=== PATIENT | female | born 1935 | race African-American/Black ===

== ENCOUNTER 2017-04-29 14:59 | Emergency (ER) | payer MEDICARE, OTHER ==
[2017-04-29 15:53] LABS: #Basophils 0.1 thou/uL (0.0-0.2); #Lymphocytes 1.5 thou/uL (1.20-3.40); #Monocytes 0.6 thou/uL (0.11-0.59); #Neutrophils 6.3 thou/uL (1.40-6.50); %Basophils 0.8 % (0.0-1.0); %Eosinophils 0.5 % (0.0-10.0); %Lymphocytes 17.3 % (21.0-51.0); %Monocytes 6.9 % (0.0-10.0); %Neutrophils 74.4 % (42.0-75.0); Hemoglobin 12.1 g/dL (12.0-16.0); Mean Corpuscular HGB CONC 31.9 g/dL (32.0-36.0); Mean Corpuscular Hemoglobin 31.9 pg (27.0-31.0); Mean Platelet Volume 9.1 fL (7.4-10.4); Platelet Count 166 thou/uL (130-400); RBC Distribution Width 14.4 % (11.5-14.5); Red Blood Cell (RBC) Count 3.79 mill/uL (4.20-5.40); White Blood Cell (WBC) Count 8.4 thou/uL (4.8-10.8)
--- NOTE | 2017-04-29 15:57 | RAD ---
PORTABLE CHEST ONE VIEW 04/29/17 at 3:37 p.m. HISTORY: Cough. FINDINGS: Comparison made to the exam of 04/15/10. The heart size is borderline. The lungs are expanded without focal areas of consolidation, pneumothor ax or jaxson pulmonary edema or pleural effusions. IMPRESSION: No radiographic evidence of acute cardiopulmonary process. POS: [facility]
[2017-04-29 16:07] LABS: ALT (SGPT) 48 U/L (8-55); AST (SGOT) 71 U/L (5-34); Albumin 3.8 g/dL (3.4-4.8); Alkaline Phosphatase 49 U/L (40-150); Anion Gap 19 mmol/L (10-20); BUN (Urea Nitrogen) 18 mg/dL (9.8-20.1); Bilirubin, Total 0.7 mg/dL (0.2-1.2); Calc. Creatinine Clearance 0 mL/min (70-130); Calcium 9.2 mg/dL (7.8-10.44); Carbon Dioxide 23 mmol/L (23-31); Chloride 105 mmol/L (98-107); Estimated GFR-MDRD 61; Globulin 3.9 g/dL (2.4-3.5); Glucose 99 mg/dL (83-110); Magnesium 2.3 mg/dL (1.6-2.6); Protein, Total 7.7 g/dL (6.0-8.3); Sodium 143 mmol/L (136-145); Uric Acid 7.9 mg/dL (2.6-6.0)
[2017-04-29 16:25] LABS: Troponin I 0.025 ng/mL (< 0.028)
[2017-04-29] MEDS ORDERED: Aspirin 325 MG TAB ONE (16:53)
== END 2017-04-29 17:19 | disposition short-term general hospital (02) ==
LOC: MADERS 14:59
DX: E87.70 Fluid overload, unspecified (principal); E03.9 Hypothyroidism, unspecified; R09.02 Hypoxemia; I10 Essential (primary) hypertension; M10.9 Gout, unspecified; Z79.899 Other long term (current) drug therapy
CPT/HCPCS: 36415; 71010; 80053; 82553; 83735; 83880; 84443; 84484; 84550; 85025; 94760

== ENCOUNTER 2017-05-05 17:10 | Inpatient (IN) | payer MEDICARE ==
[2017-05-05] MEDS ORDERED: Calcium Carbonate 500 MG ChewTAB PO PRN (20:01)
[2017-05-05] MEDS ORDERED: Nitroglycerin 0.4 MG TAB (25 Tab Bottle) SL PRN (20:02)
[2017-05-05] MEDS: Docusate 100 MG CAP PO SCH (20:57)
[2017-05-05] MEDS: Lisinopril 5 MG TAB PO SCH (20:57)
[2017-05-06] MEDS: Levothyroxine Sodium 100 MCG TAB PO SCH (05:29)
[2017-05-06 06:02] LABS: Anion Gap 15 mmol/L (10-20); BUN (Urea Nitrogen) 17 mg/dL (9.8-20.1); Calc. Creatinine Clearance 63 mL/min (70-130); Calcium 8.8 mg/dL (7.8-10.44); Carbon Dioxide 30 mmol/L (23-31); Chloride 99 mmol/L (98-107); Estimated GFR-MDRD 64; Glucose 106 mg/dL (83-110); Potassium 3.5 mmol/L (3.5-5.1); Sodium 140 mmol/L (136-145)
[2017-05-06 06:55] LABS: Hemoglobin 9.8 g/dL (12.0-16.0); Mean Corpuscular HGB CONC 32.7 g/dL (32.0-36.0); Mean Corpuscular Hemoglobin 32.4 pg (27.0-31.0); Mean Platelet Volume 8.2 fL (7.4-10.4); Platelet Count 236 thou/uL (130-400); RBC Distribution Width 13.7 % (11.5-14.5); Red Blood Cell (RBC) Count 3.02 mill/uL (4.20-5.40); White Blood Cell (WBC) Count 7.9 thou/uL (4.8-10.8)
[2017-05-06 06:56] LABS: Anisocytosis SLIGHT = 6-15 cells (100X) (0-5/hpf); Band 3 % (5-11); Eosinophils 3 % (0-10); Lymphocytes 16 % (21-51); MDiff Complete? YES; Monocytes 10 % (0-10); Neutrophil 69 % (42-75); PLT Morphology Comment Appears Adequate
[2017-05-06] MEDS: Furosemide 40 MG TAB PO SCH (07:47)
[2017-05-06] MEDS: Lisinopril 5 MG TAB PO SCH ×2 (09:02→21:11)
[2017-05-06] MEDS: Polyethylene Glycol 3350 17 GM Packet PO SCH (09:03)
[2017-05-06] MEDS: Docusate 100 MG CAP PO SCH ×2 (09:03→21:12)
[2017-05-06] MEDS ORDERED: Ondansetron ODT 4 MG TAB PO SCH (12:30)
[2017-05-06] MEDS: methylPREDNISolone 4 mg Tablet PO SCH ×2 (17:09→21:10)
--- NOTE | 2017-05-06 20:00 | HP ---
Admitted to extended care at [facility] on the evening of 05/05/2017. CHIEF COMPLAINT: Weak. PRESENT ILLNESS: The patient is an 82-year-old Joe female who has a history of hypertension, hypot hyroidism, and arthritis. The patient lives at home with her mentally challenged son. She is damaris anderson independent of her ADLs. The patient presented to the emergency room on the day of admission complaining of increasing pain and swelling in her left knee and in her right wrist with red ness, swelling and pain. The patient said that the pain had gotten such that she could no longer get around or walk. She also was having some shortness of breath. The patient was initially evaluated in the emergency room and found to have severe arthritis of the left knee, particularly in the latera l joint compartment severe arthritic changes in the right wrist, particularly in the first LONG-TERM joint and the other carpal joints of the wrist. On exam, the wrist was red and swelled as was the knee was red and hot. Her chest x-ray showed no cardiomegaly, no pulmonary vascular congestion, but her BNP was elevated to 480. Her electrocardiogram showed bradycardia with a left bundle branch block and a first degree AV block. Patient was transferred to [facility] in [place] where she was hospi talized from 04/29/2017 until 05/05/2017. The patient was evaluated by the corporate sales representative because of h er bradycardia and was found to have a left bundle branch block and a Mobitz type 2 heart block that had resolved to a first degree AV heart block. She was asymptomatic with bradycardia. She was found to be profoundly hypothyroid with a TSH of 39 and she was started on levothyroxine 100 mcg daily. H istorically, patient has hypothyroidism and has been on levothyroxine 100 mcg, but this was not liste d in her admission meds and it may be that she has been off of this medication for a while. Dr. Daina pollard, corporate sales representative felt that some of this bradycardia may be from the hypothyroidism and since she wa s asymptomatic and Mobic had improved to a first degree AV block, so it is best just to watch. She w as felt to have some mild congestive heart failure based on some rales heard in the lung, some mild p eripheral edema and BNP elevated at 480. She was treated with diuretic and the symptoms of shortness breath resolved and she was placed on oral Lasix. The BNP dropped to 280. She also was seen in [facility] by Dr. Cirilo Erazo, orthopedic surgeon, who thought that the pain in the right wr ist and the left knee were from degenerative changes with a recent gout flare. Patient improved, but was left extremely weak and having difficulty getting around. She was transferred to [facility] on the evening of 05/05/2017. The patient was seen early on the morning of 05/06/2017 and she was able to review with me the histor y cornell she had come to the emergency room and about progressive pain and swelling in the right wrist and left knee. She said this is much better, but there is still sore. She really has not been up wa lking any her activities have still been very restricted. She said she is not having any shortness b reath, nor has she had any chest pain. PAST HISTORY: Hospitalized at [facility] from 04/29/2017 to 05/05/2017 for mild congestiv e heart failure. Echocardiogram that was done during that admission was of very poor quality seconda ry to her body habitus. Ejection fraction could not accurately be obtained, but felt to be low. The patient also had arthritis of the left knee with a gout flare and also the arthritis of the right wr ist with a gout flare that was improving, see present illness. The patient has hypertension, hypothy roidism, generalized osteoarthritis, obesity. Patient has had no surgeries. MEDICATIONS: Her home medication according to my records, but patient has not been seen since 6 was levothyroxine 100 mcg daily and amlodipine 5 mg daily. In the hospital, the patient was receiv ing the following medication, acetaminophen 650 mg every 6 hours as needed, aspirin 81 mg daily, Tums 1000 mg every 4 hours as needed for indigestion, Colace 100 mg b.i.d., furosemide 40 mg daily, hydro codone 5/325 one every 4 hours as needed, levothyroxine 100 mcg daily, lisinopril 5 mg b.i.d., MiraLa x 17 grams in 8 ounces of water daily. ALLERGIES: No known allergies. REVIEW OF SYSTEMS: Constitutional: Patient does not think she has had any recent fever. She does n ot think her weight has changed. Head and Neck: No complaints. Pulmonary: Presently no shortness of breath. Cardiovascular: No chest pain. Gastrointestinal: The patient had a little nausea this morning. She denies any recent change in her bowel habits. Genitourinary: No complaints. Musculos keletal: History of severe pain in her joints. ADLs: Prior to hospitalization, the patient was ind ependent of her ADLs. HABITS: Alcohol none. Tobacco none. SOCIAL HISTORY: Patient is . Her one son lives with her. He is mentally challenged. CODE STATUS: FULL CODE. PHYSICAL EXAMINATION: GENERAL: Shows an 82-year-old Joe female who is lying in bed. She is alert, talkative, recognizes me, but weak. She does not appear in any acute distress. VITAL SIGNS: Shows a temperature of 99.1, pulse 64, blood pressure 136/65, respirations 18, O2 sat 9 2% on room air, blood pressure 136/65. Her weight is 210. Her height is 60-1/2 inches. HEAD: Normocephalic. EYES: Pupils are equal, round, and reactive. EARS: TMs are clear. NOSE: Normal. MOUTH AND THROAT: The patient is edentulous. NECK: Carotids are equal and strong, no bruits. Thyroid not enlarged. LUNGS: Clear. HEART: Regular rate. No murmurs. ABDOMEN: Obese. Abdomen is soft. No organomegaly. EXTREMITIES: No edema. Left knee, the patient has some limitation of movement of that left knee, st ill painful with movement. The mild small effusion on the left knee that apparently has gone down, t here is no redness or increased heat. The right wrist, there is pain over the first LONG-TERM joint. NEUROLOGIC: Patient alert and oriented to person, place, and situation. She has some generalized we akness, but no focal weakness. IMPRESSION: 1. Severe generalized weakness and gait abnormality. A. Secondary to recent flare of her gout with involvement of the left knee and right wrist, leaving her nonambulatory. 2. Congestive heart failure. A. Presented on 04/29/2017 with mild congestive heart failure, manifest with BNP of 480 and basilar rales and peripheral edema. B. Clinically resolved as of 05/06/2017. 3. Gout. A. Recent uric acid level of 8 with a sed rate of 64 and CRP of 10.7. B. Recent acute flare of the left knee and right wrist. C. Improved as of 05/06/2017. 4. Hypertension. 5. Hypothyroidism. A. TSH on 04/29/2017 was elevated at 39. B. Suspect patient had not been taking her levothyroxine. This was restarted at 100 mcg daily on . 6. Bradycardia. A. Presenting with Mobitz type 2 heart block that resolved to first degree AV block. B. Asymptomatic. 7. Osteoarthritis. 8. Generalized osteoarthritis. A. Severe osteoarthritis involving the lateral compartment of the left knee. B. Severe arthritis involving the first LONG-TERM joint of the right wrist and other carpal joints of that wrist. 9. Obesity. PLAN: The patient has been admitted to [facility] for purpose of strengthening and gait traini ng. Her recent gout flare apparently is diminishing and the congestive heart failure is resolved. Haily min will continue her present medicines. We will place her on a tapering dose of steroids using a Medr ol. We will have physical therapy work with her for strengthening exercise, gait training, and also occupational therapy. If the left knee pain persists, we will consider steroid injection into the kn ee.
[2017-05-07] MEDS: Levothyroxine Sodium 100 MCG TAB PO SCH (05:16)
[2017-05-07] MEDS: Docusate 100 MG CAP PO SCH ×2 (09:00→20:37)
[2017-05-07] MEDS ORDERED: methylPREDNISolone 4 mg Tablet PO SCH ×2 (09:00→21:00)
[2017-05-07] MEDS: Furosemide 40 MG TAB PO SCH (09:00)
[2017-05-07] MEDS: methylPREDNISolone 4 mg Tablet PO SCH ×3 (09:00→18:06)
[2017-05-07] MEDS: Lisinopril 5 MG TAB PO SCH ×2 (09:01→20:38)
[2017-05-07] MEDS: Polyethylene Glycol 3350 17 GM Packet PO SCH (09:01)
--- NOTE | 2017-05-07 15:54 | PRG ---
DATE OF SERVICE: 05/07/2017 SUBJECTIVE: The patient said she feels a little better, said her left knee and right wrist are a lit tle better. She does have the Gaymar pump for moist teeth that she uses over both these areas and al so low back. At home, she has a cane and also walker that she uses as needed. The patient denies an y shortness of breath. OBJECTIVE: GENERAL: The patient is sitting up in her bed. She is alert, talkative, appears very comfortable, a nd in no distress. VITAL SIGNS: Her temperature is 97.3, pulse 85, blood pressure 142/54, respirations 18, O2 saturatio n on 2 liters is 92%. LUNGS: Clear. HEART: Regular rate. The patient has mild cough. EXTREMITIES: There is still some effusion on the left knee. There is no increased heat. She has so me improvement in her movement in the left knee. Right wrist, there is a little tender over the firs t SHELTER joint. ASSESSMENT: 1. Severe generalized weakness and gait abnormality. A. Secondary to recent flare of her gout with involvement of the left knee and right wrist, leav ing her nonambulatory. B. Improved where she is tolerating, sitting up in a chair as of 05/07/2017. 2. Congestive heart failure. A. Presented on 04/29/2017 with mild congestive heart failure, manifest with BNP of 480 and basi lar rales and peripheral edema. B. No evidence of acute congestive heart failure as of 05/07/2017. 3. Gout. A. Recent uric acid level of 8 with a sed rate of 64 and CRP of 10.7. B. Recent acute flare of the left knee and right wrist. C. Improved as of 05/07/2017. 4. Hypertension. 5. Hypothyroidism. A. TSH on 04/29/2017 was elevated at 39. B. Suspect patient had not been taking her levothyroxine. This was restarted at 100 mcg daily o n 04/29/2017. 6. Bradycardia. A. Presenting with Mobitz type 2 heart block that resolved to first degree AV block. B. Asymptomatic. 7. Osteoarthritis. 8. Generalized osteoarthritis. A. Severe osteoarthritis involving the lateral compartment of the left knee. B. Severe arthritis involving the first SHELTER joint of the right wrist and other carpal joints of that wrist. 9. Obesity. PLAN: Continue present care. Continue physical therapy.
[2017-05-08] MEDS: Levothyroxine Sodium 100 MCG TAB PO SCH (05:40)
[2017-05-08] MEDS: Ondansetron ODT 4 MG TAB PO PRN (09:23)
[2017-05-08] MEDS: Docusate 100 MG CAP PO SCH ×2 (09:24→20:46)
[2017-05-08] MEDS: Furosemide 40 MG TAB PO SCH (09:24)
[2017-05-08] MEDS: Lisinopril 5 MG TAB PO SCH ×2 (09:24→20:46)
[2017-05-08] MEDS: methylPREDNISolone 4 mg Tablet PO SCH ×4 (09:25→20:46)
[2017-05-08] MEDS: Polyethylene Glycol 3350 17 GM Packet PO SCH (09:25)
[2017-05-09] MEDS: Levothyroxine Sodium 100 MCG TAB PO SCH (05:28)
[2017-05-09] MEDS: Lisinopril 5 MG TAB PO SCH ×2 (09:02→20:23)
[2017-05-09] MEDS: Docusate 100 MG CAP PO SCH ×2 (09:03→20:52)
[2017-05-09] MEDS: methylPREDNISolone 4 mg Tablet PO SCH ×3 (09:03→17:19)
[2017-05-09] MEDS: Polyethylene Glycol 3350 17 GM Packet PO SCH (09:03)
[2017-05-09] MEDS: Furosemide 40 MG TAB PO SCH (09:03)
--- NOTE | 2017-05-09 10:02 | RAD ---
RADIOGRAPH CHEST 1 VIEW: HISTORY: An 82-year-old female with wheezing. FINDINGS: The thoracic aorta is tortuous and ectatic. There is no evidence of air space density, pneumothorax, or pulmonary edema. The lateral costophrenic angles are sharp. IMPRESSION: 1) No acute pulmonary findings. 2) Ectasia of thoracic aorta. nav [] POS: [facility]
--- NOTE | 2017-05-09 17:22 | PRG ---
DATE OF SERVICE: 05/09/2017 SUBJECTIVE: The patient said she is feeling better. Her right wrist is not hurting. Her left knee feels a lot better. She is still on the methylprednisolone and she is using the Gaymar pump for ____ _ (00:22) which she says has helped. She has been coughing a little bit, but denies any shortness of breath. OBJECTIVE: GENERAL: The patient is sitting up in bed, eating her breakfast. She appears comfortable and in no distress. VITAL SIGNS: Her temperature is 99.5, pulse 53, respirations 18, O2 sat 96% on room air, blood press ure 105/62. LUNGS: The patient has good breath sounds with expiratory wheezes and rhonchi. HEART: Regular rate. EXTREMITIES: Effusion of the left knee is resolving. The knee is warm from Gaymar pump, but it was not tender. She is moving the knee better. Right wrist with no swelling or tenderness. ASSESSMENT: 1. Severe generalized weakness and gait abnormality. A. Secondary to recent flare of her gout with involvement of the left knee and right wrist, leav ing her nonambulatory. B. Improved as of 05/09/2017. 2. Congestive heart failure. A. Presented on 04/29/2017 with mild congestive heart failure, manifest with BNP of 480 and basi lar rales and peripheral edema. B. No evidence of acute congestive heart failure as of 05/09/2017. 3. Gout. A. Recent uric acid level of 8 with a sed rate of 64 and CRP of 10.7. B. Recent acute flare of the left knee and right wrist. C. Resolving as of 05/09/2017.. 4. Hypertension. 5. Hypothyroidism. A. TSH on 04/29/2017 was elevated at 39. B. Suspect patient had not been taking her levothyroxine. This was restarted at 100 mcg daily o n 04/29/2017. 6. Bradycardia. A. Presenting with Mobitz type 2 heart block that resolved to first degree AV block. B. Asymptomatic. 7. Osteoarthritis. 8. Generalized osteoarthritis. A. Severe osteoarthritis involving the lateral compartment of the left knee. B. Severe arthritis involving the first LONGTERM joint of the right wrist and other carpal joints of that wrist. C. Symptomatically improved as of 05/09/2017. 9. Obesity. 10. Asthmatic bronchitis as of 05/09/2017. PLAN: Continue the steroids. We will obtain chest x-ray. We will place the patient on DuoNebs by n ebulizer q.i.d., Mucinex as expectorant, and Levaquin for the asthmatic bronchitis. Continue physica l therapy.
[2017-05-09] MEDS: guaiFENesin ER 600 MG TAB PO SCH (20:23)
[2017-05-10 05:55] LABS: #Eosinphils 0.2 thou/uL (0.0-0.7); #Lymphocytes 1.5 thou/uL (1.20-3.40); #Monocytes 0.6 thou/uL (0.11-0.59); %Basophils 0.7 % (0.0-1.0); %Eosinophils 2.6 % (0.0-10.0); %Lymphocytes 23.9 % (21.0-51.0); %Monocytes 8.8 % (0.0-10.0); Hemoglobin 9.7 g/dL (12.0-16.0); Mean Corpuscular Hemoglobin 33.1 pg (27.0-31.0); Mean Corpuscular Volume 100.2 fl (81.0-99.0); Platelet Count 311 thou/uL (130-400); RBC Distribution Width 13.7 % (11.5-14.5); Red Blood Cell (RBC) Count 2.92 mill/uL (4.20-5.40); White Blood Cell (WBC) Count 6.2 thou/uL (4.8-10.8)
[2017-05-10] MEDS: Levothyroxine Sodium 100 MCG TAB PO SCH (06:06)
[2017-05-10 06:34] LABS: Anion Gap 12 mmol/L (10-20); BUN (Urea Nitrogen) 19 mg/dL (9.8-20.1); Calc. Creatinine Clearance 66 mL/min (70-130); Calcium 8.4 mg/dL (7.8-10.44); Carbon Dioxide 34 mmol/L (23-31); Chloride 99 mmol/L (98-107); Estimated GFR-MDRD 71; Glucose 90 mg/dL (83-110); Potassium 4.1 mmol/L (3.5-5.1); Sodium 141 mmol/L (136-145); Uric Acid 7.7 mg/dL (2.6-6.0)
[2017-05-10] MEDS: Ondansetron ODT 4 MG TAB PO PRN (07:51)
[2017-05-10] MEDS: Furosemide 40 MG TAB PO SCH (07:57)
[2017-05-10] MEDS: methylPREDNISolone 4 mg Tablet PO SCH ×2 (07:58→17:59)
[2017-05-10] MEDS: guaiFENesin ER 600 MG TAB PO SCH ×2 (07:59→20:41)
[2017-05-10] MEDS: Docusate 100 MG CAP PO SCH ×2 (07:59→20:42)
[2017-05-10] MEDS: Polyethylene Glycol 3350 17 GM Packet PO SCH (08:00)
[2017-05-10] MEDS: Lisinopril 5 MG TAB PO SCH ×2 (08:01→20:41)
[2017-05-11] MEDS: Levothyroxine Sodium 100 MCG TAB PO SCH (06:06)
[2017-05-11] MEDS ORDERED: methylPREDNISolone 4 mg Tablet PO SCH (08:00)
[2017-05-11] MEDS: Ondansetron ODT 4 MG TAB PO PRN (08:11)
[2017-05-11] MEDS: Polyethylene Glycol 3350 17 GM Packet PO SCH (08:12)
[2017-05-11] MEDS: Docusate 100 MG CAP PO SCH ×2 (08:13→21:23)
[2017-05-11] MEDS: Furosemide 40 MG TAB PO SCH (08:13)
[2017-05-11] MEDS: Lisinopril 5 MG TAB PO SCH ×2 (08:13→21:24)
[2017-05-11] MEDS: guaiFENesin ER 600 MG TAB PO SCH ×2 (08:13→21:23)
[2017-05-11] MEDS: Allopurinol 100 MG TAB PO SCH ×2 (08:27→21:24)
--- NOTE | 2017-05-11 09:42 | PRG ---
DATE OF SERVICE: 05/11/2017 SUBJECTIVE: The patient said she is feeling better. Her breathing is doing better. Her left knee a nd right wrist are better. OBJECTIVE: The patient is lying in bed. She said she is getting up sitting in the chair some. She appears very comfortable, in no distress. Her temp last evening was 99.7, pulse 75, blood pressure 1 60/87, respirations 18, O2 saturation 98% on 2 liters. Lungs, there are good breath sounds. There a re some coarse expiratory breath sounds, but no wheeze, no rales. Heart; regular rate. Left knee no ntender. Right wrist, no swelling or tenderness. Lab shows an H&H of 9.7 and 29.2, WBC count 6200 with 64% segs, 24% lymphocytes, and a platelet count of 311,000. Sed rate less than 120. CRP 7.3, sodium 141, potassium 4.1, BUN 19, creatinine 0.91, g lucose 90, uric acid 7.7. ASSESSMENT: 1. Severe generalized weakness and gait abnormality. A. Secondary to recent flare of her gout with involvement of the left knee and right wrist, leav ing her nonambulatory. B. Improved as of 05/11/2017. 2. Congestive heart failure. A. Presented on 04/29/2017 with mild congestive heart failure, manifest with BNP of 480 and basi lar rales and peripheral edema. B. No evidence of acute congestive heart failure as of 05/11/2017. 3. Gout. A. Recent uric acid level of 8 with a sed rate of 64 and CRP of 10.7. B. Recent acute flare of the left knee and right wrist. C. Resolving as of 05/11/2017. 4. Hypertension. 5. Hypothyroidism. A. TSH on 04/29/2017 was elevated at 39. B. Suspect patient had not been taking her levothyroxine. This was restarted at 100 mcg daily o n 04/29/2017. 6. Bradycardia. A. Presenting with Mobitz type 2 heart block that resolved to first degree AV block. B. Asymptomatic. 7. Osteoarthritis. 8. Generalized osteoarthritis. A. Severe osteoarthritis involving the lateral compartment of the left knee. B. Severe arthritis involving the first SHELTER joint of the right wrist and other carpal joints of that wrist. C. Symptomatically improved as of 05/09/2017. 9. Obesity. 10. Asthmatic bronchitis. A. Improved as of 05/11/2017. PLAN: Continue present care. Continue physical therapy. The patient is completing her Medrol Dosep ak. The CRP and sed rate are still elevated. We will place the patient on allopurinol to further re duce the uric acid level and reduce her risk of recurrence of the gout attacks.
[2017-05-12] MEDS: Levothyroxine Sodium 100 MCG TAB PO SCH (06:21)
[2017-05-12] MEDS: Furosemide 40 MG TAB PO SCH (07:48)
[2017-05-12] MEDS: HYDROcodone/Acetaminophen 5/325 mg Tablet PO PRN ×2 (09:35→20:04)
[2017-05-12] MEDS: Polyethylene Glycol 3350 17 GM Packet PO SCH (09:36)
[2017-05-12] MEDS: Docusate 100 MG CAP PO SCH ×2 (09:36→20:04)
[2017-05-12] MEDS: Lisinopril 5 MG TAB PO SCH ×2 (09:37→20:03)
[2017-05-12] MEDS: guaiFENesin ER 600 MG TAB PO SCH ×2 (09:37→20:05)
[2017-05-12] MEDS: Allopurinol 100 MG TAB PO SCH ×2 (09:37→20:02)
[2017-05-13] MEDS: Levothyroxine Sodium 100 MCG TAB PO SCH (06:06)
[2017-05-13] MEDS: Furosemide 40 MG TAB PO SCH (08:06)
[2017-05-13] MEDS: Ondansetron ODT 4 MG TAB PO PRN (08:06)
[2017-05-13] MEDS: Allopurinol 100 MG TAB PO SCH ×2 (08:48→20:28)
[2017-05-13] MEDS: Lisinopril 5 MG TAB PO SCH ×2 (08:48→20:31)
[2017-05-13] MEDS: Polyethylene Glycol 3350 17 GM Packet PO SCH (08:48)
[2017-05-13] MEDS: guaiFENesin ER 600 MG TAB PO SCH ×2 (08:49→20:29)
[2017-05-13] MEDS: Docusate 100 MG CAP PO SCH ×2 (08:49→20:30)
--- NOTE | 2017-05-13 15:48 | PRG ---
DATE OF SERVICE: 05/13/2017 SUBJECTIVE: The patient says that her breathing is doing good. Her cough is better. She said she h ad a little vague pain in her tummy today. She has had no vomiting, no diarrhea. The patient is wor brooke with physical therapy, but is taking maximum assistance for transferring from bed to a chair and is not ambulating. OBJECTIVE: GENERAL: The patient is lying in bed. She is awake, alert, and appears in no distress. VITAL SIGNS: Her temperature is 98.6, pulse 62, respirations 18, blood pressure 97/61, O2 sat 92% on 2 liters. LUNGS: There are moderate breath sounds. I did not hear any wheezes or rales. HEART: Regular rate. KNEE: There is no effusion. Still has limited motion in the knee. ABDOMEN: Soft and nontender. ASSESSMENT: 1. Severe generalized weakness and gait abnormality. A. Secondary to recent flare of her gout with involvement of the left knee and right wrist, leav ing her nonambulatory. B. Mild improvement, able to sit up in the chair, but requires maximum assistance with transfer as of 05/13/2017. 2. Congestive heart failure. A. Presented on 04/29/2017 with mild congestive heart failure, manifest with BNP of 480 and basi lar rales and peripheral edema. B. No evidence of acute congestive heart failure as of 05/13/2017. 3. Gout. A. Recent uric acid level of 8 with a sed rate of 64 and CRP of 10.7. B. Recent acute flare of the left knee and right wrist. C. Resolving as of 05/11/2017. 4. Hypertension. 5. Hypothyroidism. A. TSH on 04/29/2017 was elevated at 39. B. Suspect patient had not been taking her levothyroxine. This was restarted at 100 mcg daily o n 04/29/2017. 6. Bradycardia. A. Presenting with Mobitz type 2 heart block that resolved to first degree AV block. B. Asymptomatic. 7. Osteoarthritis. 8. Generalized osteoarthritis. A. Severe osteoarthritis involving the lateral compartment of the left knee. B. Severe arthritis involving the first DETENTION joint of the right wrist and other carpal joints of that wrist. C. Right wrist is bright red, so has some pain in the left knee from advanced arthritis. 9. Obesity. 10. Asthmatic bronchitis. A. Improved as of 05/13/2017. PLAN: Continue present care. We will repeat chest x-ray in the morning. The patient still on the L evaquin for the bronchitis. The patient completed the Medrol Dosepak. We will place the patient on prednisone 20 mg daily for 5 days, then 15 mg daily for 5 days, then 10 mg daily for 5 days, then 5 m g daily. We will do follow up on inflammatory markers. Knee does not improve, we will consider ster oid injection.
[2017-05-13] MEDS: HYDROcodone/Acetaminophen 5/325 mg Tablet PO PRN (20:34)
[2017-05-14 05:24] LABS: #Eosinphils 0.1 thou/uL (0.0-0.7); #Lymphocytes 1.7 thou/uL (1.20-3.40); #Monocytes 0.6 thou/uL (0.11-0.59); #Neutrophils 7.3 thou/uL (1.40-6.50); %Basophils 0.3 % (0.0-1.0); %Eosinophils 0.8 % (0.0-10.0); %Lymphocytes 17.3 % (21.0-51.0); %Monocytes 6.4 % (0.0-10.0); %Neutrophils 75.1 % (42.0-75.0); Hemoglobin 8.7 g/dL (12.0-16.0); Mean Corpuscular HGB CONC 31.9 g/dL (32.0-36.0); Mean Corpuscular Hemoglobin 32.2 pg (27.0-31.0); Mean Platelet Volume 6.4 fL (7.4-10.4); Platelet Count 304 thou/uL (130-400); RBC Distribution Width 13.7 % (11.5-14.5); White Blood Cell (WBC) Count 9.7 thou/uL (4.8-10.8)
[2017-05-14 05:38] LABS: Anion Gap 17 mmol/L (10-20); BUN (Urea Nitrogen) 21 mg/dL (9.8-20.1); Calc. Creatinine Clearance 52 mL/min (70-130); Calcium 8.9 mg/dL (7.8-10.44); Carbon Dioxide 32 mmol/L (23-31); Chloride 93 mmol/L (98-107); Estimated GFR-MDRD 56; Glucose 102 mg/dL (83-110); Potassium 4.2 mmol/L (3.5-5.1); Sodium 138 mmol/L (136-145)
[2017-05-14] MEDS: Levothyroxine Sodium 100 MCG TAB PO SCH (05:53)
[2017-05-14] MEDS: Lisinopril 5 MG TAB PO SCH ×2 (08:01→20:29)
[2017-05-14] MEDS: predniSONE 20 MG TAB PO SCH (08:01)
[2017-05-14] MEDS: guaiFENesin ER 600 MG TAB PO SCH ×2 (08:02→20:29)
[2017-05-14] MEDS: Furosemide 40 MG TAB PO SCH (08:02)
[2017-05-14] MEDS: Allopurinol 100 MG TAB PO SCH ×2 (08:03→20:30)
[2017-05-14] MEDS: Docusate 100 MG CAP PO SCH ×2 (08:03→20:29)
[2017-05-14] MEDS: Polyethylene Glycol 3350 17 GM Packet PO SCH (08:03)
--- NOTE | 2017-05-14 11:54 | PRG ---
DATE OF SERVICE: 05/14/2017 SUBJECTIVE: The patient says her knee and wrist are feeling better. She said she is eating pretty g ood. She said she has some real vague, little discomfort in her stomach, but she has had no nausea o r vomiting. Said her bowels are moving okay. Patient is not wanting to get up much. Encouraged her to try to spend more time out of bed and work with physical therapy. OBJECTIVE: GENERAL: The patient is lying in bed. She appears comfortable in no distress. VITAL SIGNS: Her temperature is 99, blood pressure 167/70, pulse 60, respirations 16 and O2 sat 93% on room air. LUNGS: There are good breath sounds. No rales. There is occasional little mild expiratory wheeze. HEART: Regular rate. ABDOMEN: Soft with good bowel sounds. Abdomen is nontender. EXTREMITIES: Right knee, there is no effusion. The knee was not tender to palpation. There is limi tyrese movement in that knee. LABORATORY DATA: Her lab shows a hemoglobin of 8.7 and hematocrit of 27.2, WBC count 9.7 with 75% se gs, 17% lymphocytes and a platelet count of 304,000. Sodium 138, potassium 4.2, BUN 21, creatinine 1 .13 and GFR 56. Uric acid level down to 5. ASSESSMENT: 1. Severe generalized weakness and gait abnormality. A. Secondary to recent flare of her gout with involvement of the left knee and right wrist, leav ing her nonambulatory. B. Essentially bed confined and requires maximum assistance up in the chair as of 05/14/2017. 2. Congestive heart failure. A. Presented on 04/29/2017 with mild congestive heart failure, manifest with BNP of 480 and basi lar rales and peripheral edema. B. No evidence of acute congestive heart failure as of 05/14/2017. 3. Gout. A. Recent uric acid level of 8 with a sed rate of 64 and CRP of 10.7. B. Recent acute flare of the left knee and right wrist. C. Acute flare has resolved as of 05/14. 4. Hypertension. 5. Hypothyroidism. A. TSH on 04/29/2017 was elevated at 39. B. Suspect patient had not been taking her levothyroxine. This was restarted at 100 mcg daily o n 04/29/2017. 6. Bradycardia. A. Presenting with Mobitz type 2 heart block that resolved to first degree AV block. B. EKG on 05/13/2016 shows a sinus bradycardia with a rate of 53 with first-degree AV block and left bundle branch block. C. Asymptomatic as of 05/14/2017. 7. Osteoarthritis. 8. Generalized osteoarthritis. A. Severe osteoarthritis involving the lateral compartment of the left knee. B. Severe arthritis involving the first RETIREMENT joint of the right wrist and other carpal joints of that wrist. C. Right wrist is bright red, so has some pain in the left knee from advanced arthritis. 9. Obesity. 10. Asthmatic bronchitis. A. Improved as of 05/14/2017. 11. Anemia of chronic illness. PLAN: We will continue present care. I have started her on steroids to see if this will help with s ome of the generalized osteoarthritis symptoms and recent gout flare and encourage her to get up more with physical therapy work with her.
[2017-05-15] MEDS: Levothyroxine Sodium 100 MCG TAB PO SCH (06:01)
[2017-05-15] MEDS: Furosemide 40 MG TAB PO SCH (07:57)
[2017-05-15] MEDS: Allopurinol 100 MG TAB PO SCH ×2 (09:23→21:11)
[2017-05-15] MEDS: guaiFENesin ER 600 MG TAB PO SCH ×2 (09:24→21:11)
[2017-05-15] MEDS: Docusate 100 MG CAP PO SCH ×2 (09:24→21:11)
[2017-05-15] MEDS: Lisinopril 5 MG TAB PO SCH ×2 (09:25→21:12)
[2017-05-15] MEDS: Polyethylene Glycol 3350 17 GM Packet PO SCH (09:26)
[2017-05-15] MEDS: predniSONE 20 MG TAB PO SCH (09:26)
[2017-05-16] MEDS: Levothyroxine Sodium 100 MCG TAB PO SCH (05:23)
[2017-05-16] MEDS: Allopurinol 100 MG TAB PO SCH ×2 (08:41→20:52)
[2017-05-16] MEDS: Docusate 100 MG CAP PO SCH ×2 (08:41→20:52)
[2017-05-16] MEDS: Furosemide 40 MG TAB PO SCH (08:41)
[2017-05-16] MEDS: guaiFENesin ER 600 MG TAB PO SCH ×2 (08:42→20:52)
[2017-05-16] MEDS: predniSONE 20 MG TAB PO SCH (08:42)
[2017-05-16] MEDS: Polyethylene Glycol 3350 17 GM Packet PO SCH (08:42)
[2017-05-16] MEDS: Lisinopril 5 MG TAB PO SCH ×2 (08:42→20:53)
[2017-05-16] MEDS: Acetaminophen 325 MG TAB PO PRN (08:43)
[2017-05-17 05:24] LABS: Anion Gap 15 mmol/L (10-20); BUN (Urea Nitrogen) 30 mg/dL (9.8-20.1); Calc. Creatinine Clearance 58 mL/min (70-130); Calcium 8.9 mg/dL (7.8-10.44); Carbon Dioxide 32 mmol/L (23-31); Chloride 97 mmol/L (98-107); Estimated GFR-MDRD 63; Glucose 98 mg/dL (83-110); Potassium 4.1 mmol/L (3.5-5.1); Sodium 140 mmol/L (136-145)
[2017-05-17 05:31] LABS: Anisocytosis SLIGHT = 6-15 cells (100X) (0-5/hpf); Band 2 % (5-11); Eosinophils 2 % (0-10); Hemoglobin 10.2 g/dL (12.0-16.0); Hypochromia MODERATE=16-30 cells (100X) (0-5/hpf); Lymphocytes 19 % (21-51); MDiff Complete? YES; Mean Corpuscular HGB CONC 32.5 g/dL (32.0-36.0); Mean Corpuscular Hemoglobin 32.5 pg (27.0-31.0); Mean Corpuscular Volume 100.1 fl (81.0-99.0); Mean Platelet Volume 5.7 fL (7.4-10.4); Monocytes 7 % (0-10); Neutrophil 69 % (42-75); PLT Morphology Comment Appears Adequate; Platelet Count 319 thou/uL (130-400); Poikilocytosis SLIGHT = 6-15 cells (100X) (0-5/hpf); RBC Distribution Width 13.5 % (11.5-14.5); RBC Morphology Abnormal; Reactive Lymphocytes 1 % (0-10); Red Blood Cell (RBC) Count 3.13 mill/uL (4.20-5.40); Schistocytes SLIGHT = 2-5 cells (100X) (0-1/hpf); White Blood Cell (WBC) Count 12.1 thou/uL (4.8-10.8)
[2017-05-17] MEDS: Levothyroxine Sodium 100 MCG TAB PO SCH (06:12)
[2017-05-17] MEDS: Furosemide 40 MG TAB PO SCH (08:40)
[2017-05-17] MEDS: guaiFENesin ER 600 MG TAB PO SCH ×2 (08:41→21:20)
[2017-05-17] MEDS: Allopurinol 100 MG TAB PO SCH ×2 (08:41→21:21)
[2017-05-17] MEDS: Docusate 100 MG CAP PO SCH ×2 (08:41→21:21)
[2017-05-17] MEDS: Lisinopril 5 MG TAB PO SCH ×2 (08:42→21:21)
[2017-05-17] MEDS: Polyethylene Glycol 3350 17 GM Packet PO SCH (08:42)
[2017-05-17] MEDS: predniSONE 20 MG TAB PO SCH (08:42)
--- NOTE | 2017-05-17 11:59 | PRG ---
DATE OF SERVICE: 05/17/2017 SUBJECTIVE: The patient said she is feeling better. Her knee is feeling better. The patient said t hat prior to her hospitalization, she was able to walk short distances. The patient said that her kn ee started to bother after she fell and she had an attack of the gout. OBJECTIVE: The patient looks better. She is a lot more interactive. She moves in bed much easier. Yesterday, she was sitting up on the edge of the bed and looked very comfortable. Her vital signs s how a temperature 98.3, pulse 65, respirations 20, O2 sat 100% on room air, blood pressure 171/67. H er lungs are clear. Heart, regular rate. Left knee, there is no effusion. The patient with very li mited motion in that left knee. There is no peripheral edema. LABORATORY DATA: Her H and H is 10.2 and 31.4, white cell count 12,100 with 69% segs, 19% lymphocyte s, and platelet count of 319. Sodium 140, potassium 4.1, BUN 30, creatinine 1, glucose 98. C-reacti ve protein pending and sed rate is greater than 120. ASSESSMENT: 1. Severe generalized weakness and gait abnormality. A. Secondary to recent flare of her gout with involvement of the left knee and right wrist, leav ing her nonambulatory. B. Essentially bed confined and requires maximum assistance up in the chair as of 05/14/2017. C. A little improved as of 05/17/2017. 2. Congestive heart failure. A. Presented on 04/29/2017 with mild congestive heart failure, manifest with BNP of 480 and basi lar rales and peripheral edema. B. No evidence of acute congestive heart failure as of 05/17/2017. 3. Gout. A. Recent uric acid level of 8 with a sed rate of 64 and CRP of 10.7. B. Recent acute flare of the left knee and right wrist. C. Acute flare has resolved as of 05/14. 4. Hypertension. 5. Hypothyroidism. A. TSH on 04/29/2017 was elevated at 39. B. Suspect patient had not been taking her levothyroxine. This was restarted at 100 mcg daily o n 04/29/2017. 6. Bradycardia. A. Presenting with Mobitz type 2 heart block that resolved to first degree AV block. B. EKG on 05/13/2016 shows a sinus bradycardia with a rate of 53 with first-degree AV block and left bundle branch block. C. Asymptomatic as of 05/14/2017. 7. Osteoarthritis. 8. Generalized osteoarthritis. A. Severe osteoarthritis involving the lateral compartment of the left knee. B. Severe arthritis involving the first SHELTER joint of the right wrist and other carpal joints of that wrist. C. Right wrist pain has resolved, left knee pain has improved. D. Marked elevation of sed rate and CRP, possibly from inflammatory arthritis, possibly just rep resenting the recent flare of her gout that has settled. 9. Obesity. 10. Asthmatic bronchitis. A. Improved as of 05/17/2017. 11. Anemia of chronic illness. A. Improved with hemoglobin up to 10.2 as of 05/17/2017. PLAN: The patient looks better. We will continue the steroids. We will recheck in the morning. We will check a rheumatoid factor. Continue physical therapy.
[2017-05-18] MEDS: Levothyroxine Sodium 100 MCG TAB PO SCH (05:11)
[2017-05-18] MEDS: Furosemide 40 MG TAB PO SCH (08:39)
[2017-05-18] MEDS: Lisinopril 5 MG TAB PO SCH ×2 (08:40→20:16)
[2017-05-18] MEDS: Docusate 100 MG CAP PO SCH ×2 (08:40→20:15)
[2017-05-18] MEDS: guaiFENesin ER 600 MG TAB PO SCH ×2 (08:41→20:15)
[2017-05-18] MEDS: Polyethylene Glycol 3350 17 GM Packet PO SCH (08:41)
[2017-05-18] MEDS: Allopurinol 100 MG TAB PO SCH ×2 (08:41→20:16)
[2017-05-18] MEDS ORDERED: predniSONE 5 MG TAB PO SCH (09:00)
[2017-05-18] MEDS: HYDROcodone/Acetaminophen 5/325 mg Tablet PO PRN (17:31)
[2017-05-19] MEDS: Levothyroxine Sodium 100 MCG TAB PO SCH (06:02)
[2017-05-19] MEDS: Furosemide 40 MG TAB PO SCH (08:32)
[2017-05-19] MEDS: predniSONE 20 MG TAB PO SCH (08:32)
[2017-05-19] MEDS: Allopurinol 100 MG TAB PO SCH ×2 (08:33→20:57)
[2017-05-19] MEDS: Docusate 100 MG CAP PO SCH ×2 (08:33→20:57)
[2017-05-19] MEDS: Lisinopril 5 MG TAB PO SCH ×2 (08:34→20:58)
[2017-05-19] MEDS: guaiFENesin ER 600 MG TAB PO SCH ×2 (08:34→20:57)
[2017-05-19] MEDS: Polyethylene Glycol 3350 17 GM Packet PO SCH (08:35)
[2017-05-19] MEDS: Acetaminophen 325 MG TAB PO PRN (11:12)
--- NOTE | 2017-05-19 11:46 | PRG ---
DATE OF SERVICE: 05/19/2017 SUBJECTIVE: The patient said she did get up some yesterday. The patient said she is doing okay, but noticed that her left knee is red and swelled again and hurts. OBJECTIVE: The patient is lying in bed. She is alert and appears comfortable. Her vital signs show temperature 98.4, pulse 56, respirations 18, O2 saturation 97%, blood pressure 158/70. Lungs have e xpiratory rhonchi and wheeze, no rales. Heart; regular rate. Left knee; the left knee is a little m ore swelled than it has been. There is a little effusion present and increased heat and it is a luis eduardo le tender to palpation. ASSESSMENT: 1. Severe generalized weakness and gait abnormality. A. Secondary to recent flare of her gout with involvement of the left knee and right wrist, leav ing her nonambulatory. B. Essentially bed confined and requires maximum assistance up in the chair as of 05/14/2017. C. Stable as of 05/19/2017. 2. Congestive heart failure. A. Presented on 04/29/2017 with mild congestive heart failure, manifest with BNP of 480 and basi lar rales and peripheral edema. B. No evidence of acute congestive heart failure as of 05/19/2017. 3. Gout. A. Recent uric acid level of 8 with a sed rate of 64 and CRP of 10.7. B. Recent acute flare of the left knee and right wrist. C. Acute flare has resolved as of 05/14. D. Acute swelling and increased heat of the left knee, suspect secondary to an acute gouty flare as of 05/19/2017. 4. Hypertension. 5. Hypothyroidism. A. TSH on 04/29/2017 was elevated at 39. B. Suspect patient had not been taking her levothyroxine. This was restarted at 100 mcg daily o n 04/29/2017. 6. Bradycardia. A. Presenting with Mobitz type 2 heart block that resolved to first degree AV block. B. EKG on 05/13/2016 shows a sinus bradycardia with a rate of 53 with first-degree AV block and left bundle branch block. C. Asymptomatic as of 05/14/2017. 7. Osteoarthritis. 8. Generalized osteoarthritis. A. Severe osteoarthritis involving the lateral compartment of the left knee. B. Severe arthritis involving the first CUSTODIAL joint of the right wrist and other carpal joints of that wrist. C. Right wrist pain has resolved, left knee pain has improved. D. Marked elevation of sed rate and CRP, possibly from inflammatory arthritis, possibly just rep resenting the recent flare of her gout that has settled. 9. Obesity. 10. Asthmatic bronchitis. A. Persists as of 05/19/2017. 11. Anemia of chronic illness. A. Improved with hemoglobin up to 10.2 as of 05/17/2017. PLAN: The patient's lab from 2 days previously showed a C-reactive protein of 11.4. Uric acid was 5 .0. The patient's prednisone had been decreased maybe prompting the flare. Will apply heat to the kn ee. We will increase her prednisone to 40 mg a day and this may help with the asthma and the acute i nflammation of the left knee. We will consider aspiration of the knee and possible steroid injection of the left knee.
[2017-05-20] MEDS: Levothyroxine Sodium 100 MCG TAB PO SCH (06:19)
[2017-05-20] MEDS: predniSONE 20 MG TAB PO SCH (08:11)
[2017-05-20] MEDS: Furosemide 40 MG TAB PO SCH (08:11)
[2017-05-20] MEDS: Allopurinol 100 MG TAB PO SCH ×2 (08:12→20:53)
[2017-05-20] MEDS: guaiFENesin ER 600 MG TAB PO SCH ×2 (08:12→20:55)
[2017-05-20] MEDS: Docusate 100 MG CAP PO SCH ×2 (08:12→20:56)
[2017-05-20] MEDS: Polyethylene Glycol 3350 17 GM Packet PO SCH (08:13)
[2017-05-20] MEDS: Lisinopril 5 MG TAB PO SCH ×2 (08:13→20:54)
--- NOTE | 2017-05-20 09:27 | PRG ---
DATE OF SERVICE: 05/20/2017 SUBJECTIVE: The patient said she feels better today. I visited with family who said that for quite some time at home the patient has essentially been in the bed. She gets up some just to a bedside co mmode. She has really not done any walking. She had a fall in the home prior to her admission when she was trying to get up. I have not seen the patient prior to this admission for 6-8 months and at that time she was getting around with just a cane, but this was very limited. Apparently, over the e nsuing months, she essentially spends most her time in bed and has very limited walking capability. In the hospital at present, she does get up in the chair some, but its maximum assistance to get her up. OBJECTIVE: The patient looks much better this morning. She looks comfortable. Her temp is 97.9, bl ood pressure 138/68, respirations 18, O2 sat 94% on 2 liters. Lungs are clear. Heart, regular rate. Left knee, the increased heat is resolved. The effusion is resolving. The leg was nontender to pa lpation. Rheumatoid factor was negative. ASSESSMENT: 1. Severe generalized weakness and gait abnormality. A. Secondary to recent flare of her gout with involvement of the left knee and right wrist, leav ing her nonambulatory. B. Essentially bed confined and requires maximum assistance up in the chair as of 05/20/2017. C. Stable as 05/20/2017. D. Conversation with family, prior to admission the patient essentially spent most of her time i n bed with very limited periods up in a chair and limited ambulatory capability. 2. Congestive heart failure. A. Presented on 04/29/2017 with mild congestive heart failure, manifest with BNP of 480 and basi lar rales and peripheral edema. B. No evidence of acute congestive heart failure as of 05/20/2017. 3. Gout. A. Recent uric acid level of 8 with a sed rate of 64 and CRP of 10.7. B. Recent acute flare of the left knee and right wrist. C. Acute flare has resolved as of 05/14. D. Acute swelling and increased heat of the left knee, suspect secondary to an acute gouty flare as of 05/19/2017. 1. Improved as of 05/20/2017. 4. Hypertension. 5. Hypothyroidism. A. TSH on 04/29/2017 was elevated at 39. B. Suspect patient had not been taking her levothyroxine. This was restarted at 100 mcg daily o n 04/29/2017. 6. Bradycardia. A. Presenting with Mobitz type 2 heart block that resolved to first degree AV block. B. EKG on 05/13/2016 shows a sinus bradycardia with a rate of 53 with first-degree AV block and left bundle branch block. C. Asymptomatic as of 05/14/2017. 7. Osteoarthritis. 8. Generalized osteoarthritis. A. Severe osteoarthritis involving the lateral compartment of the left knee. B. Severe arthritis involving the first HALF-WAY joint of the right wrist and other carpal joints of that wrist. C. Right wrist pain has resolved, left knee pain has improved. D. Marked elevation of sed rate and CRP, possibly from inflammatory arthritis, possibly just rep resenting the recent flare of her gout that has settled. 9. Obesity. 10. Asthmatic bronchitis. A. Persists as of 05/19/2017. 11. Anemia of chronic illness. A. Improved with hemoglobin up to 10.2 as of 05/17/2017. PLAN: The patient looks better today. Her knee looks better. Her lungs sound better. I visited wi th the family who explained to me her very limited capability even prior to the admission. The patie nt lives at home with a son who is mentally challenged. The patient has made very limited gains whil e in the hospital. We will continue efforts at physical therapy, but I am not optimistic that she wi ll make much progress. She has a severe arthritic left knee, but is not a candidate for any surgical repair. We will continue efforts, start physical therapy. We will get Water Engineer to visit wit h patient and the family. The patient may require half-way placement upon discharge.
[2017-05-21 05:56] LABS: Hemoglobin 8.7 g/dL (12.0-16.0); Mean Corpuscular HGB CONC 32.4 g/dL (32.0-36.0); Mean Corpuscular Hemoglobin 32.7 pg (27.0-31.0); Mean Corpuscular Volume 100.7 fl (81.0-99.0); Mean Platelet Volume 6.3 fL (7.4-10.4); Platelet Count 308 thou/uL (130-400); RBC Distribution Width 13.4 % (11.5-14.5); Red Blood Cell (RBC) Count 2.66 mill/uL (4.20-5.40); White Blood Cell (WBC) Count 13.5 thou/uL (4.8-10.8)
[2017-05-21 05:57] LABS: Anisocytosis SLIGHT = 6-15 cells (100X) (0-5/hpf); Band 7 % (5-11); Eosinophils 2 % (0-10); Hypochromia MODERATE=16-30 cells (100X) (0-5/hpf); Lymphocytes 13 % (21-51); MDiff Complete? YES; Macrocytosis SLIGHT = 6-15 cells (100X) (0-5/hpf); Monocytes 7 % (0-10); Myelocyte 1 % (0-0); Neutrophil 71 % (42-75); Poikilocytosis SLIGHT = 6-15 cells (100X) (0-5/hpf); Promyelocytes 1 % (0-0); Target Cells MODERATE= 6-15 cells (100X) (0-1/hpf)
[2017-05-21] MEDS: Levothyroxine Sodium 100 MCG TAB PO SCH (06:10)
[2017-05-21 06:32] LABS: ALT (SGPT) 38 U/L (8-55); AST (SGOT) 34 U/L (5-34); Albumin 2.9 g/dL (3.4-4.8); Alkaline Phosphatase 129 U/L (40-150); Anion Gap 15 mmol/L (10-20); BUN (Urea Nitrogen) 31 mg/dL (9.8-20.1); Bilirubin, Total 0.3 mg/dL (0.2-1.2); Calc. Creatinine Clearance 71 mL/min (70-130); Carbon Dioxide 28 mmol/L (23-31); Chloride 106 mmol/L (98-107); Estimated GFR-MDRD 79; Globulin 4.1 g/dL (2.4-3.5); Glucose 125 mg/dL (83-110); Potassium 3.9 mmol/L (3.5-5.1); Sodium 145 mmol/L (136-145)
[2017-05-21] MEDS: Allopurinol 100 MG TAB PO SCH ×2 (08:23→20:21)
[2017-05-21] MEDS: Furosemide 40 MG TAB PO SCH (08:23)
[2017-05-21] MEDS: predniSONE 20 MG TAB PO SCH (08:23)
[2017-05-21] MEDS: Lisinopril 5 MG TAB PO SCH ×2 (08:24→20:20)
[2017-05-21] MEDS: Polyethylene Glycol 3350 17 GM Packet PO SCH (08:24)
[2017-05-21] MEDS: guaiFENesin ER 600 MG TAB PO SCH ×2 (08:24→20:20)
[2017-05-21] MEDS: Docusate 100 MG CAP PO SCH ×2 (08:24→20:20)
--- NOTE | 2017-05-21 11:21 | PRG ---
DATE OF SERVICE: 05/21/2017 SUBJECTIVE: The patient states she feels little better today. She is up in a Kori chair, sitting up . It took maximum assistant research scientist to get her up into the chair. Late afternoon yesterday, patient was a l ittle bit more confused. She has had episodes of this confusion, has also tested by the family that this has been going on for some time and probably represents underlying dementia. OBJECTIVE: GENERAL: The patient is alert. She looks comfortable up in a chair. She recognizes me and correctl y able to call my name. She did know it is Wednesday, but was unsure of the year or the season. VITAL SIGNS: Shows temperature of 99.1, her pulse is 59, blood pressure 94/66, last evening it was 1 80/71, respirations 16, O2 sat 100% on 2 liters. LUNGS: Clear. HEART: Regular rate. EXTREMITIES: Left knee, there is just a small effusion. There is no redness, no increased heat. LABORATORY DATA: Shows hemoglobin and hematocrit of 8.7 and 26.8. White cell count 13,500 with 71% segs, 7% bands, and 13% lymphocytes. Her sodium 145, potassium 3.9, BUN 31, creatinine 0.83, GFR 79, and glucose 125. TSH down to 8.5 from a high of 39. ASSESSMENT: 1. Severe generalized weakness and gait abnormality. A. Secondary to recent flare of her gout with involvement of the left knee and right wrist, leav ing her nonambulatory. B. Essentially bed confined and requires maximum assistance up in the chair as of 05/20/2017. C. Stable as 05/20/2017. D. Sitting up in a chair, but requiring maximum assistance for transfer from bed as of 8. 2. Congestive heart failure. A. Presented on 04/29/2017 with mild congestive heart failure, manifest with BNP of 480 and basi lar rales and peripheral edema. B. No evidence of acute congestive heart failure as of 05/21/2017. 3. Gout. A. Recent uric acid level of 8 with a sed rate of 64 and CRP of 10.7. B. Recent acute flare of the left knee and right wrist. C. Acute flare has resolved as of 05/14. D. Acute swelling and increased heat of the left knee, suspect secondary to an acute gouty flare as of 05/19/2017. 1. Improved as of 05/21/2017. 4. Hypertension. 5. Hypothyroidism. A. TSH on 04/29/2017 was elevated at 39. B. Suspect patient had not been taking her levothyroxine. This was restarted at 100 mcg daily o n 04/29/2017. C. TSH down to 8 as of 05/21/2017. 6. Bradycardia. A. Presenting with Mobitz type 2 heart block that resolved to first degree AV block. B. EKG on 05/13/2016 shows a sinus bradycardia with a rate of 53 with first-degree AV block and left bundle branch block. C. Asymptomatic as of 05/14/2017. 7. Osteoarthritis. 8. Generalized osteoarthritis. A. Severe osteoarthritis involving the lateral compartment of the left knee. B. Severe arthritis involving the first NURSING HOME joint of the right wrist and other carpal joints of that wrist. C. Right wrist pain has resolved, left knee pain has improved. D. Marked elevation of sed rate and CRP, possibly from inflammatory arthritis, possibly just rep resenting the recent flare of her gout that has settled. E. Improved as of 05/21/2017. 9. Obesity. 10. Asthmatic bronchitis. A. Improved as of 05/21/2017. 11. Anemia of chronic illness. A. Improved with hemoglobin up to 10.2 as of 05/17/2017. 12. Dementia. PLAN: Continue physical therapy and continue present care. Long range not optimistic that patient w ill be able to make much progress with physical therapy, but she is up today in a chair and we will t ry to give her the opportunity for increase in her functional capabilities. If she is not able to im prove, suspect that she will require halfway placement.
[2017-05-22] MEDS: Levothyroxine Sodium 100 MCG TAB PO SCH (05:41)
[2017-05-22] MEDS: Polyethylene Glycol 3350 17 GM Packet PO SCH (08:00)
[2017-05-22] MEDS: Docusate 100 MG CAP PO SCH ×2 (08:39→22:11)
[2017-05-22] MEDS: guaiFENesin ER 600 MG TAB PO SCH ×2 (08:39→22:11)
[2017-05-22] MEDS: predniSONE 20 MG TAB PO SCH (08:39)
[2017-05-22] MEDS: Lisinopril 5 MG TAB PO SCH ×2 (08:39→22:12)
[2017-05-22] MEDS: Allopurinol 100 MG TAB PO SCH ×2 (08:39→22:12)
[2017-05-22] MEDS: Furosemide 40 MG TAB PO SCH (08:39)
[2017-05-23] MEDS: Levothyroxine Sodium 100 MCG TAB PO SCH (05:08)
[2017-05-23] MEDS: predniSONE 20 MG TAB PO SCH (08:44)
[2017-05-23] MEDS: Furosemide 40 MG TAB PO SCH (08:45)
[2017-05-23] MEDS: Allopurinol 100 MG TAB PO SCH ×2 (08:45→20:08)
[2017-05-23] MEDS: Lisinopril 5 MG TAB PO SCH ×2 (08:45→20:07)
[2017-05-23] MEDS: Polyethylene Glycol 3350 17 GM Packet PO SCH (08:47)
[2017-05-23] MEDS: Docusate 100 MG CAP PO SCH ×2 (08:48→20:08)
[2017-05-23] MEDS: guaiFENesin ER 600 MG TAB PO SCH ×2 (08:48→20:08)
[2017-05-23] MEDS ORDERED: predniSONE 10 MG TAB PO SCH (09:00)
[2017-05-23] MEDS ORDERED: Lisinopril 10 MG TAB ONE (19:58)
[2017-05-24] MEDS: Levothyroxine Sodium 100 MCG TAB PO SCH (06:01)
[2017-05-24 06:35] LABS: Anion Gap 13 mmol/L (10-20); BUN (Urea Nitrogen) 27 mg/dL (9.8-20.1); Calc. Creatinine Clearance 83 mL/min (70-130); Calcium 8.7 mg/dL (7.8-10.44); Carbon Dioxide 27 mmol/L (23-31); Chloride 103 mmol/L (98-107); Estimated GFR-MDRD Greater than 90; Glucose 87 mg/dL (83-110); Potassium 4.1 mmol/L (3.5-5.1); Sodium 139 mmol/L (136-145)
[2017-05-24 06:38] LABS: #Basophils 0.1 thou/uL (0.0-0.2); #Eosinphils 0.1 thou/uL (0.0-0.7); #Lymphocytes 2.9 thou/uL (1.20-3.40); #Neutrophils 9.5 thou/uL (1.40-6.50); %Basophils 0.6 % (0.0-1.0); %Eosinophils 0.6 % (0.0-10.0); %Lymphocytes 21.5 % (21.0-51.0); %Monocytes 7.5 % (0.0-10.0); %Neutrophils 69.8 % (42.0-75.0); Hemoglobin 8.9 g/dL (12.0-16.0); Mean Corpuscular HGB CONC 32.1 g/dL (32.0-36.0); Mean Corpuscular Hemoglobin 32.1 pg (27.0-31.0); Mean Corpuscular Volume 100.2 fl (81.0-99.0); Mean Platelet Volume 6.5 fL (7.4-10.4); Platelet Count 296 thou/uL (130-400); RBC Distribution Width 13.6 % (11.5-14.5); Red Blood Cell (RBC) Count 2.76 mill/uL (4.20-5.40); White Blood Cell (WBC) Count 13.7 thou/uL (4.8-10.8)
[2017-05-24] MEDS: Furosemide 40 MG TAB PO SCH (08:32)
[2017-05-24] MEDS: Allopurinol 100 MG TAB PO SCH ×2 (08:33→21:29)
[2017-05-24] MEDS: predniSONE 20 MG TAB PO SCH (08:33)
[2017-05-24] MEDS: guaiFENesin ER 600 MG TAB PO SCH ×2 (08:34→21:28)
[2017-05-24] MEDS: Docusate 100 MG CAP PO SCH ×2 (08:34→21:28)
[2017-05-24] MEDS: Polyethylene Glycol 3350 17 GM Packet PO SCH (08:37)
[2017-05-25] MEDS: Levothyroxine Sodium 100 MCG TAB PO SCH (05:48)
[2017-05-25] MEDS: guaiFENesin ER 600 MG TAB PO SCH ×2 (08:42→20:52)
[2017-05-25] MEDS: Polyethylene Glycol 3350 17 GM Packet PO SCH (08:42)
[2017-05-25] MEDS: predniSONE 20 MG TAB PO SCH (08:43)
[2017-05-25] MEDS: Docusate 100 MG CAP PO SCH ×2 (08:43→20:51)
[2017-05-25] MEDS: Furosemide 40 MG TAB PO SCH (08:43)
[2017-05-25] MEDS: Allopurinol 100 MG TAB PO SCH ×2 (08:43→20:51)
--- NOTE | 2017-05-25 12:35 | PRG ---
DATE OF SERVICE: 05/25/2017 SUBJECTIVE: The patient said she is feeling better today. The patient said her knee feels better. Nurses and dietitian said that the patient eats very, very slow. She is not drinking a lot of fluids and certainly takes in far less than her restricted amount. OBJECTIVE: The patient is sitting up in bed, is more talkative, looks comfortable in no distress. H er temperature is 98, pulse 62, respirations 20, O2 sat 95% on 2-1/2 liters, blood pressure was 95/59 , yesterday it was a little low and her lisinopril was discontinued. Her lungs were clear. Heart, r egular rate. Left knee is warm, but she said she has had the moist heat on this from the Gaymar pump . The knee certainly was not tender on palpation. Her lab that was done yesterday showed an H&H of 8.9 and 27.7, white blood cell count 13,700 with 70% segs, 21% lymphocytes, and a platelet count of 2 69,000. Her sodium was 139, potassium 4.1, BUN 27, creatinine 0.71, GFR greater than 90, glucose 87. C-reactive protein has dropped to 4.85. Her sed rate is still greater than 120. ASSESSMENT: 1. Severe generalized weakness and gait abnormality. A. Secondary to recent flare of her gout with involvement of the left knee and right wrist, leav ing her nonambulatory. B. Essentially bed confined and requires maximum assistance up in the chair as of 05/20/2017. C. Stable as 05/20/2017. D. Sitting up in a chair, but requiring maximum assistance for transfer from bed as of 8. 2. Congestive heart failure. A. Presented on 04/29/2017 with mild congestive heart failure, manifest with BNP of 480 and basi lar rales and peripheral edema. B. No evidence of acute congestive heart failure as of 05/25/2017. 3. Gout. A. Recent uric acid level of 8 with a sed rate of 64 and CRP of 10.7. B. Recent acute flare of the left knee and right wrist. C. Acute flare has resolved as of 05/14. D. Acute swelling and increased heat of the left knee, suspect secondary to an acute gouty flare as of 05/19/2017. 1. Improved as of 05/25/2017. 4. Hypertension. 5. Hypothyroidism. A. TSH on 04/29/2017 was elevated at 39. B. Suspect patient had not been taking her levothyroxine. This was restarted at 100 mcg daily o n 04/29/2017. C. TSH down to 8 as of 05/21/2017. 6. Bradycardia. A. Presenting with Mobitz type 2 heart block that resolved to first degree AV block. B. EKG on 05/13/2016 shows a sinus bradycardia with a rate of 53 with first-degree AV block and left bundle branch block. C. Asymptomatic as of 05/25/2017. 7. Osteoarthritis. 8. Generalized osteoarthritis. A. Severe osteoarthritis involving the lateral compartment of the left knee. B. Severe arthritis involving the first JAIL joint of the right wrist and other carpal joints of that wrist. C. Right wrist pain has resolved, left knee pain has improved. D. Marked elevation of sed rate and CRP, possibly from inflammatory arthritis, possibly just rep resenting the recent flare of her gout that has settled. E. Improved with CRP down to 4.8. Sed rate though is still greater than 120. 9. Obesity. 10. Asthmatic bronchitis. A. Improved as of 05/21/2017. 11. Anemia of chronic illness. A. Improved with hemoglobin up to 10.2 as of 05/17/2017. 12. Dementia. PLAN: Will remove the fluid restriction. Continue physical therapy. Will try a reduction in the pr ednisone to 20 mg.
[2017-05-25] MEDS: Acetaminophen 325 MG TAB PO PRN (20:50)
[2017-05-26] MEDS: Levothyroxine Sodium 100 MCG TAB PO SCH (05:37)
[2017-05-26] MEDS: predniSONE 20 MG TAB PO SCH (08:30)
[2017-05-26] MEDS: guaiFENesin ER 600 MG TAB PO SCH ×2 (08:30→20:15)
[2017-05-26] MEDS: Docusate 100 MG CAP PO SCH ×2 (08:30→20:15)
[2017-05-26] MEDS: Furosemide 40 MG TAB PO SCH (08:30)
[2017-05-26] MEDS: Polyethylene Glycol 3350 17 GM Packet PO SCH (08:30)
[2017-05-26] MEDS: Allopurinol 100 MG TAB PO SCH ×2 (08:30→20:15)
[2017-05-27] MEDS: Levothyroxine Sodium 100 MCG TAB PO SCH (05:59)
[2017-05-27] MEDS: predniSONE 20 MG TAB PO SCH (08:19)
[2017-05-27] MEDS: Furosemide 40 MG TAB PO SCH (08:19)
[2017-05-27] MEDS: Docusate 100 MG CAP PO SCH ×2 (08:20→19:44)
[2017-05-27] MEDS: Allopurinol 100 MG TAB PO SCH ×2 (08:20→19:45)
[2017-05-27] MEDS: guaiFENesin ER 600 MG TAB PO SCH ×2 (08:20→19:44)
[2017-05-27] MEDS: Polyethylene Glycol 3350 17 GM Packet PO SCH (08:21)
[2017-05-27] MEDS: Ondansetron ODT 4 MG TAB PO PRN (16:08)
[2017-05-28] MEDS: Levothyroxine Sodium 100 MCG TAB PO SCH (05:15)
[2017-05-28] MEDS: guaiFENesin ER 600 MG TAB PO SCH ×2 (08:32→20:11)
[2017-05-28] MEDS: Docusate 100 MG CAP PO SCH ×2 (08:32→20:11)
[2017-05-28] MEDS: Allopurinol 100 MG TAB PO SCH ×2 (08:32→20:11)
[2017-05-28] MEDS: Furosemide 40 MG TAB PO SCH (08:32)
[2017-05-28] MEDS: Polyethylene Glycol 3350 17 GM Packet PO SCH (08:32)
[2017-05-28] MEDS: predniSONE 20 MG TAB PO SCH (08:32)
[2017-05-28] MEDS ORDERED: predniSONE 5 MG TAB PO SCH (09:00)
[2017-05-28 11:37] LABS: #Basophils 0.1 thou/uL (0.0-0.2); #Eosinphils 0.1 thou/uL (0.0-0.7); #Lymphocytes 1.2 thou/uL (1.20-3.40); #Monocytes 0.9 thou/uL (0.11-0.59); #Neutrophils 9.4 thou/uL (1.40-6.50); %Basophils 0.8 % (0.0-1.0); %Eosinophils 0.9 % (0.0-10.0); %Lymphocytes 10.2 % (21.0-51.0); %Monocytes 7.8 % (0.0-10.0); %Neutrophils 80.4 % (42.0-75.0); Mean Corpuscular HGB CONC 32.8 g/dL (32.0-36.0); Mean Corpuscular Hemoglobin 32.8 pg (27.0-31.0); Mean Platelet Volume 6.4 fL (7.4-10.4); Platelet Count 263 thou/uL (130-400); RBC Distribution Width 14.2 % (11.5-14.5); Red Blood Cell (RBC) Count 2.75 mill/uL (4.20-5.40); White Blood Cell (WBC) Count 11.7 thou/uL (4.8-10.8)
--- NOTE | 2017-05-28 12:38 | PRG ---
DATE OF SERVICE: 05/28/2017 SUBJECTIVE: The patient is feeling better. She is up today in the Kori chair, still taking maximum assist for transfer. The patient said overall she is feeling better, her breathing better. OBJECTIVE: VITAL SIGNS: Her vital signs shows temperature of 100.1. Her pulse is 70, respirations 20, O2 sat 9 2% on 2 liters, and blood pressure 134/63. LUNGS: Clear. HEART: Regular rate. EXTREMITIES: Her left knee has small effusion and a little tender to palpation, there is no redness. ASSESSMENT: 1. Severe generalized weakness and gait abnormality. A. Secondary to recent flare of her gout with involvement of the left knee and right wrist, leav ing her nonambulatory. B. Essentially bed confined and requires maximum assistance up in the chair as of 05/20/2017. C. Stable as 05/20/2017. D. Sitting up in a chair, but requiring maximum assistance for transfer from bed as of 8. 2. Congestive heart failure. A. Presented on 04/29/2017 with mild congestive heart failure, manifest with BNP of 480 and basi lar rales and peripheral edema. B. No evidence of acute congestive heart failure as of 05/28/2017. 3. Gout. A. Recent uric acid level of 8 with a sed rate of 64 and CRP of 10.7. B. Recent acute flare of the left knee and right wrist. C. Acute flare has resolved as of 05/14. D. Acute swelling and increased heat of the left knee, suspect secondary to an acute gouty flare as of 05/19/2017. 1. Improved as of 05/28/2017. 4. Hypertension. 5. Hypothyroidism. A. TSH on 04/29/2017 was elevated at 39. B. Suspect patient had not been taking her levothyroxine. This was restarted at 100 mcg daily o n 04/29/2017. C. TSH down to 8 as of 05/21/2017. 6. Bradycardia. A. Presenting with Mobitz type 2 heart block that resolved to first degree AV block. B. EKG on 05/13/2016 shows a sinus bradycardia with a rate of 53 with first-degree AV block and left bundle branch block. C. Asymptomatic as of 05/25/2017. 7. Osteoarthritis. 8. Generalized osteoarthritis. A. Severe osteoarthritis involving the lateral compartment of the left knee. B. Severe arthritis involving the first ALF joint of the right wrist and other carpal joints of that wrist. C. Right wrist pain has resolved, left knee pain has improved. D. Marked elevation of sed rate and CRP, possibly from inflammatory arthritis, possibly just rep resenting the recent flare of her gout that has settled. E. Improved with CRP down to 4.8. Sed rate though is still greater than 120. 9. Obesity. 10. Asthmatic bronchitis. A. Resolved as of 05/28/2017. 11. Anemia of chronic illness. A. Improved with hemoglobin up to 10.2 as of 05/17/2017. 12. Dementia. 13. Low grade fever as of 05/28/2017. PLAN: We will continue present care. We will check CBC and UA due to low grade fever. Continue obs erve long range. The family is looking for probable move to the [facility] upon her di dulce.
[2017-05-28 15:22] LABS: Bilirubin Negative (Negative); Blood, Urine Negative (Negative); Clarity Clear (Clear); Glucose, Urine (Dipstick) Negative (Negative); Leukocyte Negative (Negative); Nitrite Negative (Negative); Protein, Urine (Dipstick) Negative (Neg-Trace); Urobilinogen 0.2 mg/dL (0.2-1.0)
[2017-05-28 15:30] LABS: Bacteria/HPF Rare-Few HPF (None Seen); Crystals/HPF 1+ AMORPH URATES HPF (Negative); RBC/HPF None Seen HPF (0-3); Squamous Epithelial 0-3 HPF (0-3); WBC/HPF None Seen HPF (0-3)
[2017-05-28] MEDS: Ondansetron ODT 4 MG TAB PO PRN (18:10)
[2017-05-28] MEDS: Acetaminophen 325 MG TAB PO PRN (20:11)
[2017-05-29] MEDS: Levothyroxine Sodium 100 MCG TAB PO SCH (05:14)
[2017-05-29] MEDS: Furosemide 40 MG TAB PO SCH (09:29)
[2017-05-29] MEDS: Polyethylene Glycol 3350 17 GM Packet PO SCH (09:29)
[2017-05-29] MEDS: predniSONE 20 MG TAB PO SCH (09:29)
[2017-05-29] MEDS: Docusate 100 MG CAP PO SCH ×2 (09:29→20:27)
[2017-05-29] MEDS: guaiFENesin ER 600 MG TAB PO SCH ×2 (09:29→20:27)
[2017-05-29] MEDS: Allopurinol 100 MG TAB PO SCH ×2 (09:29→20:27)
[2017-05-30] MEDS: Levothyroxine Sodium 100 MCG TAB PO SCH (06:04)
[2017-05-30] MEDS: predniSONE 20 MG TAB PO SCH (07:58)
[2017-05-30] MEDS: Furosemide 40 MG TAB PO SCH (07:58)
[2017-05-30] MEDS: Allopurinol 100 MG TAB PO SCH ×2 (08:31→20:18)
[2017-05-30] MEDS: Docusate 100 MG CAP PO SCH ×2 (08:32→20:18)
[2017-05-30] MEDS: Polyethylene Glycol 3350 17 GM Packet PO SCH (08:32)
[2017-05-30] MEDS: guaiFENesin ER 600 MG TAB PO SCH ×2 (08:32→20:18)
[2017-05-31] MEDS: Levothyroxine Sodium 100 MCG TAB PO SCH (06:16)
[2017-05-31] MEDS: Furosemide 40 MG TAB PO SCH (07:28)
[2017-05-31] MEDS: Polyethylene Glycol 3350 17 GM Packet PO SCH (08:26)
[2017-05-31] MEDS: guaiFENesin ER 600 MG TAB PO SCH ×2 (08:27→19:59)
[2017-05-31] MEDS: Allopurinol 100 MG TAB PO SCH ×2 (08:27→19:59)
[2017-05-31] MEDS: Docusate 100 MG CAP PO SCH ×2 (08:28→19:59)
[2017-05-31] MEDS: predniSONE 20 MG TAB PO SCH (08:28)
--- NOTE | 2017-05-31 12:41 | PRG ---
DATE OF SERVICE: 05/31/2017 SUBJECTIVE: The patient said she is doing okay this morning. OBJECTIVE: The patient is lying in bed. She is alert, appears comfortable, in no distress. She has heat on her left knee. Her vital signs show a temperature 98.9, pulse 70, respirations 18, O2 sat 1 00% on 2 liters, blood pressure last evening 189/78, earlier 163/69. Her lungs are clear. Heart, re gular rate. Left knee, small effusion present. Leg mildly tender to palpation. Patient has very mi nimal movement in that left knee. ASSESSMENT: 1. Severe generalized weakness and gait abnormality. A. Secondary to recent flare of her gout with involvement of the left knee and right wrist, leav ing her nonambulatory. B. Essentially bed confined and requires maximum assistance up in the chair as of 05/20/2017. C. Sitting up in a chair some, but required maximum assistance with transfer from bed to a chair as of 05/31/2017. 2. Congestive heart failure. A. Presented on 04/29/2017 with mild congestive heart failure, manifest with BNP of 480 and basi lar rales and peripheral edema. B. No evidence of acute congestive heart failure as of 05/31/2017. 3. Gout. A. Recent uric acid level of 8 with a sed rate of 64 and CRP of 10.7. B. Recent acute flare of the left knee and right wrist. C. Acute flare has resolved as of 05/14. D. Acute swelling and increased heat of the left knee, suspect secondary to an acute gouty flare as of 05/19/2017. 1. The acute gouty flare has resolved, but patient still has some chronic degenerative porter e as of 05/31/2017. 4. Hypertension. 5. Hypothyroidism. A. TSH on 04/29/2017 was elevated at 39. B. Suspect patient had not been taking her levothyroxine. This was restarted at 100 mcg daily o n 04/29/2017. C. TSH down to 8 as of 05/21/2017. 6. Bradycardia. A. Presenting with Mobitz type 2 heart block that resolved to first degree AV block. B. EKG on 05/13/2016 shows a sinus bradycardia with a rate of 53 with first-degree AV block and left bundle branch block. C. Asymptomatic as of 05/31/2017. 7. Osteoarthritis. 8. Generalized osteoarthritis. A. Severe osteoarthritis involving the lateral compartment of the left knee. B. Severe arthritis involving the first USP joint of the right wrist and other carpal joints of that wrist. C. Right wrist pain has resolved, left knee pain has improved. D. Marked elevation of sed rate and CRP, possibly from inflammatory arthritis, possibly just rep resenting the recent flare of her gout that has settled. E. Improved with CRP down to 4.8. Sed rate though is still greater than 120. 9. Obesity. 10. Asthmatic bronchitis. A. Resolved as of 05/28/2017. 11. Anemia of chronic illness. A. Improved with hemoglobin up to 10.2 as of 05/17/2017. 12. Dementia. PLAN: Continue present care. Continue physical therapy efforts. Family looking towards patient ent ering the retirement.
[2017-06-01] MEDS: Levothyroxine Sodium 100 MCG TAB PO SCH (05:51)
[2017-06-01] MEDS: Furosemide 40 MG TAB PO SCH (08:16)
[2017-06-01] MEDS: Polyethylene Glycol 3350 17 GM Packet PO SCH (08:16)
[2017-06-01] MEDS: predniSONE 20 MG TAB PO SCH (08:16)
[2017-06-01] MEDS: Docusate 100 MG CAP PO SCH ×2 (08:16→20:14)
[2017-06-01] MEDS: guaiFENesin ER 600 MG TAB PO SCH ×2 (08:17→20:14)
[2017-06-01] MEDS: Allopurinol 100 MG TAB PO SCH ×2 (08:17→20:14)
[2017-06-01] MEDS: HYDROcodone/Acetaminophen 5/325 mg Tablet PO PRN (08:18)
[2017-06-02] MEDS: Levothyroxine Sodium 100 MCG TAB PO SCH (06:05)
[2017-06-02] MEDS ORDERED: predniSONE 20 MG TAB PO SCH (08:18)
[2017-06-02] MEDS: Docusate 100 MG CAP PO SCH ×2 (08:26→20:28)
[2017-06-02] MEDS: Allopurinol 100 MG TAB PO SCH ×2 (08:26→20:31)
[2017-06-02] MEDS: Furosemide 40 MG TAB PO SCH (08:26)
[2017-06-02] MEDS: Polyethylene Glycol 3350 17 GM Packet PO SCH (08:26)
[2017-06-02] MEDS: guaiFENesin ER 600 MG TAB PO SCH ×2 (08:26→20:28)
[2017-06-02] MEDS: predniSONE 20 MG TAB PO SCH (10:17)
[2017-06-02] MEDS: HYDROcodone/Acetaminophen 5/325 mg Tablet PO PRN ×2 (10:34→19:42)
--- NOTE | 2017-06-02 11:15 | PRG ---
DATE OF SERVICE: 06/02/2017 SUBJECTIVE: The patient said she is feeling better today. The patient is being lifted with a Rebecca lift into a wheelchair and she has enjoyed being up in a wheelchair. OBJECTIVE: The patient is sitting up in a wheelchair, alert, appears comfortable, in no distress. H er temperature is 97, pulse 60, respirations 20, O2 sat 93% on 2 liters, blood pressure 93/57, earlie r 141/60. Lungs are clear. Heart, regular rate. Extremities, no edema. The patient has small effu kamaljit on both knees. ASSESSMENT: 1. Severe generalized weakness and gait abnormality. A. Secondary to recent flare of her gout with involvement of the left knee and right wrist, leav ing her nonambulatory. B. Essentially bed confined and requires maximum assistance up in the chair as of 05/20/2017. C. Tolerating sitting up in a wheelchair, but requires lifting to the chair with a Rebecca lift as of 06/02/2017. 2. Congestive heart failure. A. Presented on 04/29/2017 with mild congestive heart failure, manifest with BNP of 480 and basi lar rales and peripheral edema. B. No evidence of acute congestive heart failure as of 06/02/2017. 3. Gout. A. Recent uric acid level of 8 with a sed rate of 64 and CRP of 10.7. B. Recent acute flare of the left knee and right wrist. C. Acute flare has resolved as of 05/14. D. Acute swelling and increased heat of the left knee, suspect secondary to an acute gouty flare as of 05/19/2017. 1. The acute gouty flare has resolved, but patient still has some chronic degenerative porter e as of 06/02/2017. 4. Hypertension. 5. Hypothyroidism. A. TSH on 04/29/2017 was elevated at 39. B. Suspect patient had not been taking her levothyroxine. This was restarted at 100 mcg daily o n 04/29/2017. C. TSH down to 8 as of 05/21/2017. 6. Bradycardia. A. Presenting with Mobitz type 2 heart block that resolved to first degree AV block. B. EKG on 05/13/2016 shows a sinus bradycardia with a rate of 53 with first-degree AV block and left bundle branch block. C. Asymptomatic as of 06/02/2017. 7. Osteoarthritis. 8. Generalized osteoarthritis. A. Severe osteoarthritis involving the lateral compartment of the left knee. B. Severe arthritis involving the first PRISON joint of the right wrist and other carpal joints of that wrist. C. Right wrist pain has resolved, left knee pain has improved. D. Marked elevation of sed rate and CRP, possibly from inflammatory arthritis, possibly just rep resenting the recent flare of her gout that has settled. E. Improved with CRP down to 4.8. Sed rate though is still greater than 120. 9. Obesity. 10. Asthmatic bronchitis. A. Resolved as of 05/28/2017. 11. Anemia of chronic illness. A. Improved with hemoglobin up to 10.2 as of 05/17/2017. 12. Dementia. PLAN: Continue present care. Will reduce the prednisone to 10 mg a day and family making arrangemen ts for patient to enter [facility] tomorrow.
[2017-06-03] MEDS: Levothyroxine Sodium 100 MCG TAB PO SCH (06:06)
[2017-06-03] MEDS: Docusate 100 MG CAP PO SCH ×2 (08:55→20:19)
[2017-06-03] MEDS: Allopurinol 100 MG TAB PO SCH ×2 (08:55→20:19)
[2017-06-03] MEDS: guaiFENesin ER 600 MG TAB PO SCH ×2 (08:55→20:19)
[2017-06-03] MEDS: predniSONE 20 MG TAB PO SCH (08:55)
[2017-06-03] MEDS: HYDROcodone/Acetaminophen 5/325 mg Tablet PO PRN (08:56)
[2017-06-03] MEDS: Polyethylene Glycol 3350 17 GM Packet PO SCH (08:56)
--- NOTE | 2017-06-03 09:01 | PRG ---
DATE OF SERVICE: 06/03/2017 SUBJECTIVE: The patient said she is feeling fine. OBJECTIVE: The patient is lying in bed, alert, talkative, appears comfortable, and in no distress. Her skin is dry. Her vital signs this morning showed blood pressure of 65/52, through in the evening she also had a low pressure, but later recheck was 118/58. Periodically, she will run low levels. Her blood pressure medicines have been held. Her repeat pressure was 68/52. Her lungs are clear. H eart, regular rate. Extremities have no edema. ASSESSMENT: Hypotension, with her in bed, asymptomatic. The source of this is not known, possibly s econdary to effect of her diuretics with over diuresis, also possibly related to adrenal insufficienc y since she has been on steroids and these have been decreased. PLAN: The patient was scheduled to go to group home today. This will be delayed. We will start t he patient on IV fluids and give her 250 mL bolus and then run at 100 an hour. We will check cortiso l level, CBC, and basic metabolic panel this morning and we will also give patient bolus of steroids in the event that this is adrenal insufficiency.
[2017-06-03 09:37] LABS: Anisocytosis SLIGHT = 6-15 cells (100X) (0-5/hpf); Band 1 % (5-11); Eosinophils 1 % (0-10); Hemoglobin 10.2 g/dL (12.0-16.0); Lymphocytes 11 % (21-51); MDiff Complete? YES; Manual Diff?? YES; Mean Corpuscular HGB CONC 32.4 g/dL (32.0-36.0); Mean Corpuscular Hemoglobin 32.7 pg (27.0-31.0); Mean Corpuscular Volume 100.9 fl (81.0-99.0); Mean Platelet Volume 8.7 fL (7.4-10.4); Monocytes 7 % (0-10); Neutrophil 80 % (42-75); Platelet Count 130 thou/uL (130-400); RBC Distribution Width 14.3 % (11.5-14.5); Red Blood Cell (RBC) Count 3.12 mill/uL (4.20-5.40); White Blood Cell (WBC) Count 10.7 thou/uL (4.8-10.8)
[2017-06-03 09:38] LABS: PLT Morphology Comment Appears Adequate
[2017-06-03 09:42] LABS: CKMB 1.2 ng/mL (0-6.6); Troponin I 0.035 ng/mL (< 0.028)
[2017-06-03 09:44] LABS: ALT (SGPT) 22 U/L (8-55); AST (SGOT) 21 U/L (5-34); Albumin 3.1 g/dL (3.4-4.8); Alkaline Phosphatase 79 U/L (40-150); Anion Gap 17 mmol/L (10-20); BUN (Urea Nitrogen) 24 mg/dL (9.8-20.1); Bilirubin, Total 0.6 mg/dL (0.2-1.2); Calc. Creatinine Clearance 82 mL/min (70-130); Calcium 9.3 mg/dL (7.8-10.44); Carbon Dioxide 25 mmol/L (23-31); Chloride 100 mmol/L (98-107); Estimated GFR-MDRD Greater than 90; Globulin 4.2 g/dL (2.4-3.5); Glucose 104 mg/dL (83-110); Potassium 4.1 mmol/L (3.5-5.1); Protein, Total 7.3 g/dL (6.0-8.3); Sodium 138 mmol/L (136-145)
[2017-06-03] MEDS: Furosemide 40 MG TAB PO SCH (10:02)
[2017-06-03] MEDS: Sodium Chloride 0.9% 1,000 ML IV SCH ×2 (16:37→20:18)
[2017-06-04] MEDS: Sodium Chloride 0.9% 1,000 ML IV SCH (04:57)
[2017-06-04 05:57] LABS: Anion Gap 12 mmol/L (10-20); BUN (Urea Nitrogen) 24 mg/dL (9.8-20.1); Calc. Creatinine Clearance 92 mL/min (70-130); Carbon Dioxide 28 mmol/L (23-31); Chloride 101 mmol/L (98-107); Estimated GFR-MDRD Greater than 90; Glucose 108 mg/dL (83-110); Potassium 4.3 mmol/L (3.5-5.1); Sodium 137 mmol/L (136-145)
[2017-06-04] MEDS: Levothyroxine Sodium 100 MCG TAB PO SCH (06:09)
[2017-06-04 06:22] LABS: #Eosinphils 0.1 thou/uL (0.0-0.7); #Lymphocytes 1.2 thou/uL (1.20-3.40); #Monocytes 0.7 thou/uL (0.11-0.59); %Basophils 0.3 % (0.0-1.0); %Eosinophils 0.5 % (0.0-10.0); %Lymphocytes 10.9 % (21.0-51.0); %Neutrophils 82.3 % (42.0-75.0); Hemoglobin 8.3 g/dL (12.0-16.0); Mean Corpuscular HGB CONC 33.5 g/dL (32.0-36.0); Mean Corpuscular Hemoglobin 33.3 pg (27.0-31.0); Mean Corpuscular Volume 99.3 fl (81.0-99.0); Mean Platelet Volume 7.3 fL (7.4-10.4); Platelet Count 228 thou/uL (130-400); RBC Distribution Width 14.1 % (11.5-14.5); Red Blood Cell (RBC) Count 2.51 mill/uL (4.20-5.40); White Blood Cell (WBC) Count 10.9 thou/uL (4.8-10.8)
[2017-06-04] MEDS: Allopurinol 100 MG TAB PO SCH (09:13)
[2017-06-04] MEDS: guaiFENesin ER 600 MG TAB PO SCH (09:14)
[2017-06-04] MEDS: Polyethylene Glycol 3350 17 GM Packet PO SCH (09:14)
[2017-06-04] MEDS: Docusate 100 MG CAP PO SCH (09:14)
[2017-06-04] MEDS: predniSONE 20 MG TAB PO SCH (09:21)
[2017-06-04 09:35] VITALS: BMI 30.7
--- NOTE | 2017-06-04 10:59 | DIS ---
FINAL DIAGNOSES: 1. Severe generalized weakness and gait abnormality. A. Secondary to recent flare of her gout with involvement of the left knee and right wrist, leav ing her nonambulatory. B. Essentially bed confined and requires maximum assistance up in the chair as of 05/20/2017. C. Tolerating sitting up in a wheelchair, but requires lifting to the chair with a Rebecca lift as of 06/02/2017. 2. Congestive heart failure. A. Presented on 04/29/2017 with mild congestive heart failure, manifest with BNP of 480 and basi lar rales and peripheral edema. B. No evidence of acute congestive heart failure as of 06/04/2017. 3. Gout. A. Recent uric acid level of 8 with a sed rate of 64 and CRP of 10.7. B. Recent acute flare of the left knee and right wrist. C. Acute flare has resolved as of 05/14. D. Acute swelling and increased heat of the left knee, suspect secondary to an acute gouty flare as of 05/19/2017. 1. The acute gouty flare has resolved, but patient still has some chronic degenerative porter e as of 06/02/2017. 4. Hypertension. A. Complicated by hypotension on 06/03/2017 secondary to the over diuresis that has resolved. 5. Hypothyroidism. A. TSH on 04/29/2017 was elevated at 39. B. Suspect patient had not been taking her levothyroxine. This was restarted at 100 mcg daily o n 04/29/2017. C. TSH down to 8 as of 05/21/2017. 6. Bradycardia. A. Presenting with Mobitz type 2 heart block that resolved to first degree AV block. B. EKG on 05/13/2016 shows a sinus bradycardia with a rate of 53 with first-degree AV block and left bundle branch block. C. Asymptomatic as of 06/04/2017. 7. Osteoarthritis. 8. Generalized osteoarthritis. A. Severe osteoarthritis involving the lateral compartment of the left knee. B. Severe arthritis involving the first ASSISTED joint of the right wrist and other carpal joints of that wrist. C. Right wrist pain has resolved, left knee pain has improved. D. Leaving patient essentially bed and chair confined. 9. Obesity. 10. Asthmatic bronchitis. A. Resolved as of 05/28/2017. 11. Anemia of chronic illness. A. Mild decline with hemoglobin to 8.3 with no signs of bleeding as of 06/04/2017. 12. Dementia. REASON FOR ADMISSION: The patient is an 82-year-old Joe female who had been hospitalized at [facility] from 04/29/2017 to 05/05/2017 for mild congestive heart failure manifest with elevati on of BNP, basilar rales and peripheral edema and severe pain in her left knee and wrist from swellin g with elevation of uric acid level, sed rate and CRP. She does have a history of significant arthri tis in the left knee particular the lateral joint compartment. She was seen by Dr. Erazo, orthop edic surgeon, who felt this was an acute gouty flareup. This was resolving, but the effusion resolvi ng, increased heat resolving and the pain was resolving. She also during her hospitalization had a s ignificant bradycardia that was felt to be secondary to severe hypothyroidism. TSH was elevated at 3 9. The patient was started on levothyroxine 100 mcg daily. The bradycardias stabilized and the Mobi tz type 2 changed to a first degree AV block. Prior to her hospitalization, she was living at home w ith a son who is mentally challenged. She did very little walking, most of the time she has been up in a chair and a bed. The patient was sent to [facility] on 06/05/2016 for her severe generali zed weakness, gait abnormality and severe deconditioning. HOSPITAL COURSE: Physical therapy worked with patient during her hospitalization. She was very limi tyrese and made very minimal progress. In visiting with the family her activities at home prior to the admission were also very limited, but since this recent hospitalization, they have been worse. Event ually, the patient was able to sit up in a bedside chair, was more comfortable though sitting up in a wheelchair and required maximum assist and the use of a Rebecca lift to get her up in a wheelchair emmanuel t she did seem to enjoy. During her hospitalization, she did develop an asthmatic bronchitis, was tr eated with neb treatments, antibiotics, and steroids and resolved. The patient's congestive heart fa ilure that was mild during her hospitalization at [facility] has resolved. She had no evide nce of acute congestive heart failure during her admission. She also had hypertension, this was estefany ged with lisinopril and furosemide. The patient had some effusion noted of her left knee. She had r ecently had a gouty flareup of the knee and the wrist. The wrist swelling had resolved. The knee im proved with resolution of the increased temperature and resolution of the effusion. She had limited range of motion in that knee secondary to the severe arthritis. She was not a candidate for any type of operative intervention due to her comorbidities and generalized poor functional status. The patient also was noted to have marked elevation in her CRP and sed rate. Her rheumatoid factor w as negative. The uric acid level had normalized. The patient was placed on a trial of steroids whic h seemed to help some and these were tapered down from 40 mg to 10 mg a day. The patient overall see med to improve in that she felt better with the asthmatic bronchitis, resolved. Her acute effusion a nd pain in the left knee had improved. Her blood pressure was controlled. She had some episodes whe re the pressure was low and the lisinopril was stopped. The patient's functional capabilities were v any limited and she was only able to get up in a wheelchair with maximum assist with the use of a Hoy er and physical therapy. The patient's condition was such that she would not be able to manage and t william care of herself in the home and did not have adequate support in the home to be managed there. T he family made arrangements for her to enter [facility], originally it was planned on h er entering the [facility] at [place] on 06/03/2017. That morning she was asymptomatic, but he r blood pressure was only 65. She did not have any symptoms. She was not short of breath. Her lung s remained clear. Her electrocardiogram showed the sinus bradycardia with a rate of 53 and a first d egree AV block with no acute changes. Her hemoglobin was 8.3, a little lower than usual, but she had no signs of any bleeding. Her white cell count was 10,900. Her BUN was stable at 24, creatinine 0. 62. Troponin I was slightly elevated to 0.035 which was felt to be chronic. Cortisol level was done to ensure she was not having adrenal insufficiency since her steroids have been recently tapered, he r cortisol level was 11.4, which is normal. The patient was still on the furosemide. This was stopp ed and IV was ordered but after multiple attempts, could not be stopped since she was asymptomatic an d able to take fluids, oral fluids were pushed and blood pressure normalized. Blood pressure came up to 145/65 and then to 154/65 and then on the morning of 06/04/2017 it was 180/77. The patient's exa m was unremarkable on the morning of 06/04/2017. The cause of the hypotension was felt to be seconda ry to the over diuresis from the furosemide which was stopped. Will leave off her antihypertensive a nd just monitor her blood pressure. Her condition stabilized and felt that she could be transferred to [facility] today which was agreeable with the patient. DIET: Regular diet, no added salt. ACTIVITIES: May be up in a wheelchair within her tolerance. Will have physical therapy and occupati onal therapy there at the [facility] evaluate the patient. May apply moist heat to the left knee a s desired. The hospital used a [employer] pump. O2 at 2 liters as needed to keep O2 sat above 92%. MEDICATIONS: Acetaminophen 325 mg 2 every 4 hours as needed, allopurinol 100 mg b.i.d., aspirin 81 m g daily, Mylanta 30 mL every 4 hours as needed for indigestion, Docusate sodium 100 mg b.i.d., hydroc odone/acetaminophen 5/325 one every 8 hours as needed for pain, DuoNeb by nebulizer b.i.d. and q.4h. as needed, levothyroxine 100 mcg daily, prednisone 20 mg daily x5 days, then reduce to 10 mg daily. FOLLOWUP: Follow up in 1 week. The patient will need a CBC, basic metabolic panel and a TSH. The p atient will need to be seen in followup in 1-2 weeks. CODE STATUS: Full code.
[2017-06-04 14:15] VITALS: BP 172/69; TEMP 98.4
== END 2017-06-04 14:20 | DRG 554 ==
LOC: MADMS 18:43
PROVIDERS: ADMIT Family Medicine; ATTEND Family Medicine
DX: M10.9 Gout, unspecified (principal); I11.0 Hypertensive heart disease with heart failure; I50.9 Heart failure, unspecified; I95.2 Hypotension due to drugs; D63.8 Anemia in other chronic diseases classified elsewhere; I44.1 Atrioventricular block, second degree; F03.90 Unspecified dementia, unspecified severity, without behavioral disturbance, psychotic disturbance, mood disturbance, and anxiety; I44.7 Left bundle-branch block, unspecified; E03.9 Hypothyroidism, unspecified; R26.9 Unspecified abnormalities of gait and mobility; Z74.01 Bed confinement status; M17.12 Unilateral primary osteoarthritis, left knee; M19.031 Primary osteoarthritis, right wrist; E66.9 Obesity, unspecified; J45.909 Unspecified asthma, uncomplicated; M25.462 Effusion, left knee; T50.1X5A Adverse effect of loop [high-ceiling] diuretics, initial encounter; Z68.30 Body mass index [BMI] 30.0-30.9, adult
CPT/HCPCS: 36415; 71010; 80048; 80053; 81001; 82533; 82553; 84443; 84484; 84550; 85007; 85025; 85027; 85652; 86140; 86430; 93005; 93010; 94640; G8978-GP-CM; G8979-GP-CK; G8980-GP-CJ; J7050; J7506; J7620; Q0162

== ENCOUNTER 2019-03-21 11:30 | Emergency (ER) | payer MEDICARE, OTHER ==
[2019-03-21 12:12] LABS: Mean Corpuscular HGB CONC 29.6 g/dL (32.0-36.0); Mean Corpuscular Hemoglobin 29.8 pg (27.0-31.0); Mean Corpuscular Volume 100.8 fL (78.0-98.0); Mean Platelet Volume 7.8 fL (7.4-10.4); Platelet Count 222 thou/uL (130-400); RBC Distribution Width 15.7 % (11.5-14.5); Red Blood Cell (RBC) Count 4.04 mill/uL (4.20-5.40)
--- NOTE | 2019-03-21 12:20 | RAD ---
EXAM: CHEST ONE VIEW HISTORY: Shortness of breath. COMPARISON: 05/09/2017. FINDINGS: Cardiac silhouette is magnified by projection but does appear larger in size on today's exam. There i s suboptimal evaluation of the left lung base due to the enlarged cardiac silhouette and underpenetrated technique of the study. Lungs otherwise appear clear. Vascular calcifications are see n in the thoracic aorta. No other interval change. IMPRESSION: 1. Cardiomegaly. 2. Suboptimal evaluation left lung base.
[2019-03-21 12:32] LABS: Eosinophils 2 % (0-10); Lymphocytes 16 % (21-51); MDiff Complete? YES; Monocytes 11 % (0-10); Neutrophil 71 % (42-75); Nucleated RBC 1 % (0); Platelet Morphology Comment Appears Adequate; Vacuoles MODERATE
[2019-03-21 12:37] LABS: Bilirubin Negative (Negative); Blood, Urine Negative (Negative); Clarity Clear (Clear); Glucose, Urine (Dipstick) Negative (Negative); Leukocyte Trace (Negative); Nitrite Negative (Negative); Protein, Urine (Dipstick) Negative (Neg-Trace); Urobilinogen 0.2 mg/dL (Less than 2)
[2019-03-21 12:46] LABS: Bacteria/HPF 1+ HPF (None Seen); RBC/HPF 0-3 HPF (0-3); Squamous Epithelial 0-3 HPF (0-3); WBC/HPF 0-3 HPF (0-3)
[2019-03-21 13:29] LABS: CKMB 1.6 ng/mL (0-6.6)
[2019-03-21] MEDS ORDERED: Furosemide 40 MG/4 ML VIAL ONE (13:49)
[2019-03-21 15:12] LABS: AST (SGOT) 18 U/L (5-34); Alkaline Phosphatase 64 U/L (40-110); Anion Gap 15 mmol/L (10-20); Bilirubin, Total 0.5 mg/dL (0.2-1.2); Calc. Creatinine Clearance 0 mL/min (70-130); Calcium 9.2 mg/dL (7.8-10.44); Carbon Dioxide 30 mmol/L (23-31); Chloride 101 mmol/L (98-107); Estimated GFR-MDRD 89; Potassium 3.8 mmol/L (3.5-5.1); Sodium 142 mmol/L (136-145)
[2019-03-21 15:30] LABS: ALT (SGPT) 18 U/L (8-55); Albumin 3.3 g/dL (3.4-4.8); BUN (Urea Nitrogen) 9 mg/dL (9.8-20.1); Globulin 2.9 g/dL (2.4-3.5); Glucose 119 mg/dL (83-110); Protein, Total 6.2 g/dL (6.0-8.3)
== END 2019-03-21 14:53 | disposition short-term general hospital (02) ==
LOC: MADERS 11:30
DX: I11.0 Hypertensive heart disease with heart failure (principal); I50.9 Heart failure, unspecified; R79.89 Other specified abnormal findings of blood chemistry; M17.12 Unilateral primary osteoarthritis, left knee; F03.90 Unspecified dementia, unspecified severity, without behavioral disturbance, psychotic disturbance, mood disturbance, and anxiety; K21.9 Gastro-esophageal reflux disease without esophagitis; M10.9 Gout, unspecified; E03.9 Hypothyroidism, unspecified; Z79.82 Long term (current) use of aspirin; Z79.899 Other long term (current) drug therapy; Z79.51 Long term (current) use of inhaled steroids; Z79.52 Long term (current) use of systemic steroids
CPT/HCPCS: 71045; 80053; 81003; 81015; 82553; 83880; 84484; 85025; 87077; 87086; 93005; A4353; J1940

== ENCOUNTER 2021-09-13 14:17 | Emergency (ER) | payer MEDICARE, MEDICAID ==
[2021-09-13 14:47] LABS: #Basophils 0.1 thou/uL (0.0-0.2); #Eosinphils 0.2 thou/uL (0.0-0.7); #Monocytes 0.5 thou/uL (0.11-0.59); #Neutrophils 3.8 thou/uL (1.40-6.50); %Basophils 1.1 % (0.0-1.0); %Eosinophils 3.5 % (0.0-10.0); %Lymphocytes 18.1 % (21.0-51.0); %Neutrophils 68.3 % (42.0-75.0); Mean Corpuscular HGB CONC 29.8 g/dL (32.0-36.0); Mean Corpuscular Hemoglobin 30.7 pg (27.0-31.0); Mean Corpuscular Volume 103.3 fL (78.0-98.0); Mean Platelet Volume 10.6 fL (7.4-10.4); Platelet Count 140 thou/uL (130-400); RBC Distribution Width 16.4 % (11.5-14.5); Red Blood Cell (RBC) Count 3.25 mill/uL (4.20-5.40); White Blood Cell (WBC) Count 5.6 thou/uL (4.8-10.8)
[2021-09-13 15:00] LABS: ALT (SGPT) 8 U/L (8-55); AST (SGOT) 16 U/L (5-34); Albumin 2.9 g/dL (3.4-4.8); Alkaline Phosphatase 94 U/L (40-110); Anion Gap 18 mmol/L (10-20); BUN (Urea Nitrogen) 16 mg/dL (9.8-20.1); Bilirubin, Total 0.8 mg/dL (0.2-1.2); Calc. Creatinine Clearance 0 mL/min (70-130); Calcium 8.1 mg/dL (7.8-10.44); Carbon Dioxide 30 mmol/L (23-31); Chloride 102 mmol/L (98-107); Globulin 3.3 g/dL (2.4-3.5); Glucose 107 mg/dL (83-110); Potassium 3.5 mmol/L (3.5-5.1); Protein, Total 6.2 g/dL (5.8-8.1); Sodium 146 mmol/L (136-145)
[2021-09-13 15:04] LABS: Macrocytosis SLIGHT = 6-15 cells (100X) (0-5/hpf); Target Cells SLIGHT = 2-5 cells (100X) (0-1/hpf)
[2021-09-13 15:05] LABS: Hypochromia SLIGHT = 6-15 cells (100X) (0-5/hpf); Polychromasia SLIGHT = 2-3 cells (100X) (0-2/hpf)
[2021-09-13] MEDS ORDERED: Furosemide 20 MG/2 ML VIAL ONE ×2 (16:08→17:53)
[2021-09-13] MEDS ORDERED: cefTRIAXone\\ROCEPHIN 1 GM VIAL ONE (16:08)
[2021-09-13] MEDS ORDERED: Sodium Chloride 0.9% 100 ML ONE (16:08)
[2021-09-13 16:26] LABS: Bilirubin Negative (Negative); Blood, Urine Large (Negative); Clarity Cloudy (Clear); Glucose, Urine (Dipstick) Negative (Negative); Ketone, Urine Negative (Negative); Leukocyte Small (Negative); Nitrite Negative (Negative); Protein, Urine (Dipstick) 30 mg/dL (Neg-Trace); Specific Gravity, Urine 1.025 (1.005-1.030); pH, Urine 5.5 (5.0-9.0)
[2021-09-13 16:27] LABS: Bacteria/HPF 1+ HPF (None Seen); RBC/HPF Greater than 50 HPF (0-3); WBC/HPF Greater Than 50 HPF (0-3); Yeast-Budding 2+ HPF (None Seen)
[2021-09-13 16:28] LABS: Calcium Oxalate Crystals Rare HPF (None Seen)
[2021-09-13] MEDS ORDERED: Azithromycin 500 MG VIAL ONE (16:56)
[2021-09-13] MEDS ORDERED: Sodium Chloride 0.9% 250 ML 250 ML ONE (16:56)
[2021-09-13] MEDS ORDERED: Albumin 25% 0 ML ONE (16:56)
== END 2021-09-13 17:58 | disposition short-term general hospital (02) ==
LOC: MADERS 14:17
DX: I11.0 Hypertensive heart disease with heart failure (principal); I50.9 Heart failure, unspecified; R06.03 Acute respiratory distress; E03.9 Hypothyroidism, unspecified; Z79.899 Other long term (current) drug therapy
CPT/HCPCS: 51702; 71045; 80053; 81003; 81015; 83735; 83880; 84484; 85025; 87040; 87086; 93005; 96365; 96375; 96376; J0456; J0696; J1940; J3490; J7050; P9047

== ENCOUNTER 2021-09-30 15:25 | Outpatient (CLI) | payer MEDICARE, MEDICAID ==
[2021-09-30 18:05] LABS: ALT (SGPT) 8 U/L (8-55); AST (SGOT) 15 U/L (5-34); Albumin 2.9 g/dL (3.4-4.8); Alkaline Phosphatase 75 U/L (40-110); Anion Gap 22 mmol/L (10-20); BUN (Urea Nitrogen) 16 mg/dL (9.8-20.1); Calc. Creatinine Clearance 0 mL/min (70-130); Calcium 8.7 mg/dL (7.8-10.44); Carbon Dioxide 32 mmol/L (23-31); Chloride 94 mmol/L (98-107); Globulin 3.4 g/dL (2.4-3.5); Glucose 119 mg/dL (83-110); Potassium 3.6 mmol/L (3.5-5.1); Protein, Total 6.3 g/dL (5.8-8.1); Sodium 144 mmol/L (136-145)
[2021-09-30 18:54] LABS: Anisocytosis SLIGHT = 6-15 cells (100X) (0-5/hpf); Eosinophils 2 % (0-10); Hemoglobin 10.1 g/dL (12.0-16.0); Lymphocytes 17 % (21-51); MDiff Complete? YES; Macrocytosis SLIGHT = 6-15 cells (100X) (0-5/hpf); Manual Diff?? YES; Mean Corpuscular HGB CONC 29.6 g/dL (32.0-36.0); Mean Corpuscular Hemoglobin 31.3 pg (27.0-31.0); Mean Corpuscular Volume 105.7 fL (78.0-98.0); Mean Platelet Volume 8.5 fL (7.4-10.4); Monocytes 3 % (0-10); Neutrophil 76 % (42-75); Platelet Count 171 thou/uL (130-400); RBC Distribution Width 16.1 % (11.5-14.5); Reactive Lymphocytes 2 % (0-10); Red Blood Cell (RBC) Count 3.23 mill/uL (4.20-5.40); Target Cells SLIGHT = 2-5 cells (100X) (0-1/hpf); White Blood Cell (WBC) Count 6.1 thou/uL (4.8-10.8)
== END 2021-09-30 15:26 | disposition home or self-care (01) ==
LOC: MADLAB 15:25
PROVIDERS: ATTEND Family Medicine
DX: I50.23 Acute on chronic systolic (congestive) heart failure (principal)
CPT/HCPCS: 80053; 85025

== ENCOUNTER 2021-10-30 12:20 | Outpatient (CLI) | payer MEDICARE, MEDICAID ==
[2021-10-30 16:47] LABS: Anisocytosis SLIGHT = 6-15 cells (100X) (0-5/hpf); Band 3 % (5-11); Eosinophils 6 % (0-10); Hypochromia SLIGHT = 6-15 cells (100X) (0-5/hpf); Lymphocytes 33 % (21-51); MDiff Complete? YES; Macrocytosis SLIGHT = 6-15 cells (100X) (0-5/hpf); Mean Corpuscular HGB CONC 30.4 g/dL (32.0-36.0); Mean Corpuscular Hemoglobin 30.8 pg (27.0-31.0); Mean Corpuscular Volume 101.2 fL (78.0-98.0); Mean Platelet Volume 7.5 fL (7.4-10.4); Microcytosis SLIGHT = 6-15 cells (100X) (0-5/hpf); Monocytes 5 % (0-10); Neutrophil 53 % (42-75); Nucleated RBC 3 % (0); Platelet Count 175 thou/uL (130-400); Platelet Morphology Comment Appears Adequate; RBC Distribution Width 16.8 % (11.5-14.5); Red Blood Cell (RBC) Count 3.24 mill/uL (4.20-5.40); Target Cells SLIGHT = 2-5 cells (100X) (0-1/hpf); White Blood Cell (WBC) Count 5.3 thou/uL (4.8-10.8)
== END 2021-10-30 12:21 | disposition home or self-care (01) ==
LOC: MADLAB 12:20
PROVIDERS: ATTEND Family Medicine
DX: I50.23 Acute on chronic systolic (congestive) heart failure (principal)
CPT/HCPCS: 85025